=== PATIENT | female | born 1970 | race Caucasian/White ===

== ENCOUNTER 2020-02-04 10:47 | Emergency (ER) | payer SELFPAY ==
[2020-02-04 11:03] VITALS: BP 162/93; PULSE 103; RESP 14; TEMP 36.8; O2SAT 99; BMI 29.1
[2020-02-04 11:44] LABS: Glucose Urine UA >=1000 MG/DL (NEG); Leukocyte Esterase Urine NEG (NEG); Nitrite Urine NEG (NEG); PH 7.5 (5.0-8.0); Urine Blood 1+ (NEG); Urine Ketones NEG (NEG); Urine Protein TRACE MG/DL (NEG-TRACE)
[2020-02-04 11:45] LABS: Appearance Urine CLEAR; Color Urine YELLOW
[2020-02-04 12:02] LABS: WBC Urine 0-2 /HPF (0-4)
--- NOTE | 2020-02-04 12:47 | ED.FEMALEGU ---
HPI - Female Genitourinary General Chief complaint: Urogenital-Female Stated complaint: cath removal Time Seen by Provider: 02/04/20 11:59 Source: patient Mode of arrival: wheelchair Limitations: language barrier (family at the bedside to translate ) History of Present Illness HPI Narrative: 49 y/o female with history of DM, neuropathy, PVD s/p left BKA on 01/23 in [place] presents with vaginal pain due to persistent Metz being in place for the last 11 days. She reports she was supposed to get it out in [place] however she moved to [facility] to be with family. She states she has discomfort externally but denies bladder pain, hematuria, fever, chills. Urine has been clear and light yellow. She is also asking for basic wound care recommendations for her BKA. No pus or drainage from the site. No redness or warmth. MD elicited complaint: other (Metz catheter removal ) Pertinent past history: diabetes Onset (ago): day(s) (11) Location of symptoms: external genitalia Severity: mild Female Urogenital Radiation: Non-Radiating Severity scale (1-10): 1 Quality of pain: aching Consistency: constant Vaginal discharge: none Vaginal bleeding: none Relieving factors: none Associated symptoms: denies other symptoms Treatment prior to arrival: none Sexual activity: No Patient : No Related Data Previous Rx's Medication Instructions Recorded oxycodone 5 mg PO Q6H PRN #10 cap 02/04/20 walker #1 ea 02/04/20 Allergies Allergy/AdvReac Type Severity Reaction Status Date / Time Penicillins [PENICILLINS] Allergy Mild RASH Unverified 01/18/20 16:39 Review of Systems Review of Systems: Constitutional: No Fever, No Chills ENT/Mouth: No sore throat, No Rhinorrhea, No Swallowing Difficulty Eyes: No Eye Pain, No Swelling, No Redness Cardiovascular: No Chest Pain, No SOB, No Orthopnea, No Edema Respiratory: No Cough, No Sputum, No Wheezing, Gastrointestinal: No Nausea, No Vomiting, No Diarrhea, No abdominal Pain, No Hematochezia, No Melena Genitourinary: No Dysuria, No Urinary Frequency, No Hematuria, + Metz discomfort externally Musculoskeletal: positive joint pain at surgical site, No Myalgias Skin: No Skin Lesions, No rash, No cellulitis Neuro: No Weakness, No Numbness, No Dizziness, No Headache Psych: No Anxiety/Panic, No Depression Heme/Lymph: No Bruising, No Lymphadenopathy Endocrine: No Polyuria, No Polydipsia All other 10 point ROS are negative. [facility] Past Medical History Attestation statement: The following information was validated with the patient. Medical History Asthma Diabetes mellitus, type 2 Hypercholesteremia Surgical History History of amputation Social History Social History Smoked in Last 30 Days: No Use of substances other than those prescribed or required for medical reasons: No Advance Directives: No Advance Directives Information Provided: No Physical Exam Vital Signs and I&O and Narrative: Vital Signs and I&O: Vital Signs Temp 98.3 F 02/04/20 11:03 Pulse 103 H 02/04/20 11:03 Resp 14 02/04/20 11:03 BP 162/93 H 02/04/20 11:03 Pulse Ox 99 02/04/20 11:03 Intake & Output 02/03/20 02/04/20 02/04/20 18:59 06:59 18:59 Weight 76.921 kg Body Mass Index 29.1 Appearance: Alert. Oriented X3. No acute distress. Eyes: Pupils equal, round and reactive to light. ENT: Pharynx normal. Neck: Normal inspection. Neck supple. CVS: Normal heart rate and rhythm. Pulses normal. Respiratory: No respiratory distress. Breath sounds normal. Abdomen: Soft and nontender. +BS x4 : external genitalia normal, no vaginal discharge, urethral meatus normal in appearance Skin: Skin warm and dry. Normal skin color. Normal skin turgor. No rashes. Extremities: s/p left BKA, wound is clean and dry, no drainage, no erythema or warmth Neuro: Oriented X 3. No motor deficit. No sensory deficit. Course Course Hospital Course: POD # 11 - will removal Metz and see if she can void on her own. No signs of wound infection. Basic wound care discussed. Will refer to wound clinic and PCP. She will need sutures removed in 3 more days. It is healing well without signs of infeciton. Reevaluation(s) Reevaluation #1: Independently voided 200 cc clear urine. 0 PVR. Stable for d/c. MDM - Female Genitourinary Differential Diagnosis Differential diagnosis: Likely urinary tract infection and cystitis Medical Records Attestation: I reviewed the patient's medical records. Lab Data Attestation: I reviewed the patient's lab results. Labs: Lab Results 02/04/20 Range/Units 11:24 Urine Color YELLOW Urine Appearance CLEAR Urine pH 7.5 (5.0-8.0) Ur Specific [place] 1.010 (1.005-1.025) Urine Protein TRACE (NEG-TRACE) MG/DL Urine Glucose (UA) >=1000 H (NEG) MG/DL Urine Ketones NEG (NEG) MG/DL Urine Blood 1+ H (NEG) Urine Nitrite NEG (NEG) Ur Leukocyte Esterase NEG (NEG) Urine RBC 5-9 H (0) /HPF Urine WBC 0-2 (0-4) /HPF Ur Squamous Epith Cells NONE /LPF Urine Bacteria NONE /LPF Discharge Plan Discharge Clinical Impression: Encounter for Metz catheter removal S/P BKA (below knee amputation) Qualifiers: Laterality: left Qualified Code(s): Z89.512 - Acquired absence of left leg below knee Patient Disposition: Home, Self-Care Instructions: Care For Your Stitches (ED), Metz Catheter Removal (DC) Additional Instructions: Recommend sutures be removed on post-op day 14 - which is in 3 more days. Keep area clean and dry, wash daily with gentle soap and water and then apply bacitracin/triple antibiotic ointment. If you have difficulty urinating call your doctor or come back to the ER for further evaluation. Prescriptions: New oxycodone 5 mg capsule 5 mg PO Q6H PRN (Reason: pain) Qty: 10 RF: 0 (DME) walker Misc See Rx Instructions .ROUTE .MEDSUPPLY Qty: 1 RF: 0 Referrals: [facility] [Outside] - 2 days
--- NOTE | 2020-02-04 13:03 | PC.NURSE ---
Metz catheter removed as ordered by PA. Pt has since voided 200cc, with a remaining 9cc PVR. PA aware. Left BKA incision cleaned and re-dressed. Pt awaiting dc instructions.
[2020-02-04 13:28] VITALS: BP 174/96; PULSE 99; RESP 14; O2SAT 96
== END 2020-02-04 14:03 | disposition home or self-care (01) ==
PROVIDERS: Emergency Provider Emergency Medicine
DX: Z46.6 Encounter for fitting and adjustment of urinary device (principal); E11.9 Type 2 diabetes mellitus without complications; E78.00 Pure hypercholesterolemia, unspecified; Z89.512 Acquired absence of left leg below knee; Z79.4 Long term (current) use of insulin; Z79.899 Other long term (current) drug therapy
CPT/HCPCS: 81001; 99284

== ENCOUNTER 2020-02-07 08:00 | Emergency (ER) | payer SELFPAY ==
[2020-02-07 08:15] VITALS: BP 191/103; PULSE 88; RESP 16; TEMP 36.8; O2SAT 97; BMI 29.5
--- NOTE | 2020-02-07 08:20 | ED.NAVMDI ---
HPI - Nausea/Vomiting/Diarrhea General Chief complaint: Nausea/Vomiting/Diarrhea Stated complaint: vomiting Time Seen by Provider: 02/07/20 08:20 Source: patient Mode of arrival: ambulatory History of Present Illness HPI Narrative: 57-year-old female with a past medical history of asthma, DM, HLD, L BKA 2 weeks ago 2/2 gangrene c/o nausea and vomiting x4 days. Reports noncompliance with metformin and insulin and has not been checking glucose at home. Reports recent BKA in [place], then moved here, does not have doctors here yet due to insurance. Reports BKA has been improving since procedure on 01/23, denies drainage / fever. Denies chills, CP /SOB, abdominal pain, diarrhea, urine symptoms Associated nausea: Yes Related Data Previous Rx's Medication Instructions Recorded oxycodone 5 mg PO Q6H PRN #10 cap 02/04/20 walker #1 ea 02/04/20 insulin regular human [Humulin R 10 unit SUBCUT TID #10 ml 02/07/20 Regular U-100 Insuln] lisinopril 20 mg PO DAILY #30 tab 02/07/20 metformin 1,000 mg PO BID #60 tab 02/07/20 quetiapine [Seroquel] 200 mg PO BEDTIME #30 tab 02/07/20 tramadol 50 mg PO Q8H PRN 3 Days #10 tab 02/07/20 trazodone 150 mg PO BEDTIME PRN #30 tab 02/07/20 Allergies Allergy/AdvReac Type Severity Reaction Status Date / Time Penicillins [PENICILLINS] Allergy Mild RASH Unverified 01/18/20 16:39 Review of Systems Review of Systems: Yes all other systems are reviewed and are negative Constitutional: Constitutional: Reports as per HPI, Reports no additional constitutional complaints, Denies chills, Denies fever(s) and Denies headache(s) ENT: Reports system reviewed and no additional complaints, except as documented, Reports as per HPI, Denies headache(s) and Denies sore throat Cardiovascular: Cardiovascular: Reports as per HPI, Reports no additional cardiovascular complaints, Denies chest pain, Denies edema, Denies dyspnea and Denies dyspnea on exertion Respiratory: Respiratory: Reports as per HPI, Reports no additional respiratory complaints, Denies chest congestion, Denies cough, Denies dyspnea and Denies dyspnea on exertion Gastrointestinal: Gastrointestinal: Denies abdominal pain, Denies diarrhea, Reports nausea and Reports vomiting Genitourinary: Genitourinary: Denies hematuria and Denies flank pain Musculoskeletal: Musculoskeletal: Reports as per HPI, Denies numbness and Denies tingling Integumentary/Breasts: Skin/Breast: Denies rash Neurologic: Denies headache(s), Denies numbness, Denies Sensory deficit (Neuro) and Denies tingling Psychiatric: Psychiatric: Reports no additional psychiatric complaints Endocrine: Endocrine: Denies polydipsia and Reports polyuria [facility] Past Medical History Attestation statement: The following information was validated with the patient. Medical History (Updated 02/07/20 @ 16:33 by ROSALIO Gleason) Asthma Diabetes mellitus, type 2 Hypercholesteremia Surgical History (Updated 02/07/20 @ 08:51 by ROSALIO Gleason) History of amputation Social History Social History Alcohol intake: never Smoking Status: Never smoker Use of substances other than those prescribed or required for medical reasons: No Advance Directives: No Advance Directives Information Provided: Yes Physical Exam Vital Signs and I&O and Narrative: Vital Signs and I&O: Vital Signs Temp 98.3 F 02/07/20 08:28 Pulse 88 02/07/20 08:28 Resp 16 02/07/20 08:15 BP 191/103 H 02/07/20 08:28 Pulse Ox 97 02/07/20 08:28 Intake & Output 02/06/20 02/07/20 02/07/20 18:59 06:59 18:59 Intake Total 3000 / 3000 Balance 3000 / 3000 Weight 78.018 kg Intake: Intake, IV Amoun t 3000 / 3000 0.9 % Sodium C hloride 1,000 ml 3000 / 3000 @ 999 mls/hr I VCONT .Q1H1M [facility] Rx#:[id number] Body Mass Index 29.5 Const: General: cooperative and healthy appearing Orientation/consciousness: patient oriented x3 Limitations: no limitations HENMT: Head: Yes normal to inspection Ears: hearing grossly normal bilaterally General nose exam: Normal external nose present Face and sinus: Yes normal facial exam Eyes: General: appearance normal, both eyes and all related structures EOM: EOMs intact bilaterally Neck: Neck: Yes normal visual inspection Resp: Effort & Inspection: normal respiratory effort and no stridor Auscultation: clear to auscultation bilaterally, no crackles, no rales, no rhonchi and no wheezes Cardio: Rate: regular rate Heart sounds: S1 normal heart sound present and S2 normal heart sound present Peripheral pulses: Peripheral pulses 2+ throughout GI: Inspection: Yes normal to inspection Palpation (GI): Soft to palpation, nontender, no guarding and not rigid Skin: Wounds: no wounds Neuro: General: patient oriented x3 Gait exam (Neuro): Normal gait present Sensory Exam: No Sensory deficit (Neuro) Extrem: Other: left BKA with sutures intact. No surrounding erythema /cellulitis. No expressible drainage. No fluctuance or induration. Course Course Course Narrative: -1000-- H&H slightly lower than baseline ( likely postsurgical ) -1030-- GERRI with creatinine 1.7/BUN 28, glucose 523, no AG > likely from dehydration > will give IVF and re-evaluated difficulty getting IV access on patient. Was obtained using ultrasound, IVF now running -19 sutures removed -wound began to slightly dehiscence in ED. Surgery, Dr. Mata paged and re-wrapped wound/applied steri strips in the ED. Patient to follow-up with him in 1 week -1517-- repeat POC 294 -1628-- GERRI resolved with IVF lab results discussed with patient with diabetes specialist including worrisome signs and symptoms and strict return precautions. Will refill patient's home medications. She is to follow-up with surgery and establish care with a PCP. MDM - Nausea/Vomiting/Diarrhea MDM Narrative Medical decision making narrative: 57-year-old female with a past medical history of asthma, DM, HLD, L BKA 2 weeks ago 2/2 gangrene c/o nausea and vomiting x4 days. On exam hypertensive, NAD/ nontoxic appearing. Concern for DKA/hyperglycemia/ dehydration. BKA does not look actively infected. -Per patient sutures dissolvable, however do not appear to be and likely need to be removed today as is POD14 Plan: Labs, UA, IVF, Sx Tx, Reassess Differential Diagnosis Differential diagnosis: Likely food poisoning, gastroenteritis and dehydration Medical Records Attestation: I reviewed the patient's medical records. Lab Data Attestation: I reviewed the patient's lab results. Result diagrams: 10/07/20 14:47 02/07/20 15:45 Labs: Lab Results 02/07/20 02/07/20 02/07/20 Range/Units 08:17 09:20 09:39 WBC 6.6 (4.8-10.8) X10*3/uL RBC 4.00 L (4.20-5.50) X10*6/uL Hgb 11.4 L (12.0-16.0) g/dl Hct 34.8 L (37-47) % MCV 87.0 (80-98) fL MCH 28.5 (27.0-33.0) pg MCHC 32.8 (31.0-35.0) g/dl RDW 13.2 (11.0-16.0) % Plt Count 378 (160-400) X10*3/uL MPV 10.1 (9.4-12.3) fL Immature Gran % (Auto) 0.3 (0.0-0.4) % Neut % (Auto) 70.3 (45-73) % Lymph % (Auto) 17.6 L (20-40) % Parke % (Auto) 6.4 (2-11) % Eos % (Auto) 4.6 H (0-4) % Baso % (Auto) 0.8 (0-2) % Neut # (Auto) 4.6 (2.0-8.3) X10*3/uL Lymph # (Auto) 1.2 (1.2-4.9) X10*3/uL Parke # (Auto) 0.4 (0.1-1.2) X10*3/uL Eos # (Auto) 0.3 (0.0-0.4) X10*3/uL Baso # (Auto) 0.1 (0.0-0.2) X10*3/uL Abs Immat Gran (auto) 0.02 (0.00-0.03) X10*3/uL Absolute Nucleated RBC 0.000 (0.0-0.012) X10*3/uL Nucleated RBC % (auto) 0.0 (0.0-0.2) /100WBC VBG pH (7.32-7.43) VBG pCO2 mmhg VBG Oxygen Liters/Min VBG pO2 mmhg VBG HCO3 mmol/L VBG O2 Saturation % VBG Base Excess mmol/L Sodium (135-145) mmol/L Potassium (3.3-5.1) mmol/l Chloride (96-108) mmol/L Carbon Dioxide (22-29) mmol/L Anion Gap (12-20) BUN (9-16) mg/dL Creatinine (0.5-1.4) mg/dL Estim Creat Clear Calc Estimated GFR POC Glucose 446 H* 443 H* (60-115) mg/dL Random Glucose (60-115) mg/dL Calcium (8.4-10.2) mg/dL Magnesium (1.6-2.6) mg/dL Total Bilirubin (0.0-1.0) mg/dL Direct Bilirubin (0.0-0.5) mg/dL AST (5-31) U/L ALT (0-31) U/L Alkaline Phosphatase (39-117) U/L Total Protein (6.5-8.0) g/dL Albumin (3.5-5.0) g/dL Lipase (8-78) U/L Urine Color Urine Appearance Urine pH (5.0-8.0) Ur Specific Marshall (1.005-1.025) Urine Protein (NEG-TRACE) MG/DL Urine Glucose (UA) (NEG) MG/DL Urine Ketones (NEG) MG/DL Urine Blood (NEG) Urine Nitrite (NEG) Ur Leukocyte Esterase (NEG) Urine RBC (0) /HPF Urine WBC (0-4) /HPF Ur Squamous Epith Cells /LPF Urine Bacteria /LPF Urine Mucus /LPF Acetone, Qual (Negative) 02/07/20 02/07/20 02/07/20 Range/Units 09:39 09:39 10:48 WBC (4.8-10.8) X10*3/uL RBC (4.20-5.50) X10*6/uL Hgb (12.0-16.0) g/dl Hct (37-47) % MCV (80-98) fL MCH (27.0-33.0) pg MCHC (31.0-35.0) g/dl RDW (11.0-16.0) % Plt Count (160-400) X10*3/uL MPV (9.4-12.3) fL Immature Gran % (Auto) (0.0-0.4) % Neut % (Auto) (45-73) % Lymph % (Auto) (20-40) % Parke % (Auto) (2-11) % Eos % (Auto) (0-4) % Baso % (Auto) (0-2) % Neut # (Auto) (2.0-8.3) X10*3/uL Lymph # (Auto) (1.2-4.9) X10*3/uL Parke # (Auto) (0.1-1.2) X10*3/uL Eos # (Auto) (0.0-0.4) X10*3/uL Baso # (Auto) (0.0-0.2) X10*3/uL Abs Immat Gran (auto) (0.00-0.03) X10*3/uL Absolute Nucleated RBC (0.0-0.012) X10*3/uL Nucleated RBC % (auto) (0.0-0.2) /100WBC VBG pH 7.40 (7.32-7.43) VBG pCO2 58 mmhg VBG Oxygen Liters/Min TNP VBG pO2 47 mmhg VBG HCO3 34 mmol/L VBG O2 Saturation 82.4 % VBG Base Excess 7.8 mmol/L Sodium 139 (135-145) mmol/L Potassium 3.7 (3.3-5.1) mmol/l Chloride 95 L (96-108) mmol/L Carbon Dioxide 32 H (22-29) mmol/L Anion Gap 16 (12-20) BUN 28 H (9-16) mg/dL Creatinine 1.70 H (0.5-1.4) mg/dL Estim Creat Clear Calc 40.0 Estimated GFR 32 POC Glucose (60-115) mg/dL Random Glucose 523 H* (60-115) mg/dL Calcium 9.5 (8.4-10.2) mg/dL Magnesium 1.6 (1.6-2.6) mg/dL Total Bilirubin 0.5 (0.0-1.0) mg/dL Direct Bilirubin 0.2 (0.0-0.5) mg/dL AST 15 (5-31) U/L ALT 18 (0-31) U/L Alkaline Phosphatase 118 H (39-117) U/L Total Protein 8.6 H (6.5-8.0) g/dL Albumin 3.9 (3.5-5.0) g/dL Lipase 24 (8-78) U/L Urine Color YELLOW Urine Appearance CLEAR Urine pH 7.0 (5.0-8.0) Ur Specific Marshall 1.015 (1.005-1.025) Urine Protein 2+ H (NEG-TRACE) MG/DL Urine Glucose (UA) >=1000 H (NEG) MG/DL Urine Ketones NEG (NEG) MG/DL Urine Blood TRACE (NEG) Urine Nitrite NEG (NEG) Ur Leukocyte Esterase NEG (NEG) Urine RBC 5-9 H (0) /HPF Urine WBC 5-9 H (0-4) /HPF Ur Squamous Epith Cells 1+ /LPF Urine Bacteria NONE /LPF Urine Mucus 1+ /LPF Acetone, Qual Negative (Negative) 02/07/20 02/07/20 02/07/20 Range/Units 14:45 14:47 15:45 WBC 6.4 (4.8-10.8) X10*3/uL RBC 3.39 L (4.20-5.50) X10*6/uL Hgb 9.8 L (12.0-16.0) g/dl Hct 29.7 L (37-47) % MCV 87.6 (80-98) fL MCH 28.9 (27.0-33.0) pg MCHC 33.0 (31.0-35.0) g/dl RDW 13.2 (11.0-16.0) % Plt Count 318 (160-400) X10*3/uL MPV 10.0 (9.4-12.3) fL Immature Gran % (Auto) 0.3 (0.0-0.4) % Neut % (Auto) 64.9 (45-73) % Lymph % (Auto) 21.6 (20-40) % Parke % (Auto) 8.5 (2-11) % Eos % (Auto) 3.8 (0-4) % Baso % (Auto) 0.9 (0-2) % Neut # (Auto) 4.2 (2.0-8.3) X10*3/uL Lymph # (Auto) 1.4 (1.2-4.9) X10*3/uL Parke # (Auto) 0.5 (0.1-1.2) X10*3/uL Eos # (Auto) 0.2 (0.0-0.4) X10*3/uL Baso # (Auto) 0.1 (0.0-0.2) X10*3/uL Abs Immat Gran (auto) 0.02 (0.00-0.03) X10*3/uL Absolute Nucleated RBC 0.000 (0.0-0.012) X10*3/uL Nucleated RBC % (auto) 0.0 (0.0-0.2) /100WBC VBG pH (7.32-7.43) VBG pCO2 mmhg VBG Oxygen Liters/Min VBG pO2 mmhg VBG HCO3 mmol/L VBG O2 Saturation % VBG Base Excess mmol/L Sodium 139 (135-145) mmol/L Potassium 3.3 (3.3-5.1) mmol/l Chloride 103 (96-108) mmol/L Carbon Dioxide 25 (22-29) mmol/L Anion Gap 14 (12-20) BUN 23 H (9-16) mg/dL Creatinine 1.28 (0.5-1.4) mg/dL Estim Creat Clear Calc 53.1 Estimated GFR 44 POC Glucose 294 H (60-115) mg/dL Random Glucose 331 H D (60-115) mg/dL Calcium 8.3 L (8.4-10.2) mg/dL Magnesium (1.6-2.6) mg/dL Total Bilirubin (0.0-1.0) mg/dL Direct Bilirubin (0.0-0.5) mg/dL AST (5-31) U/L ALT (0-31) U/L Alkaline Phosphatase (39-117) U/L Total Protein (6.5-8.0) g/dL Albumin (3.5-5.0) g/dL Lipase (8-78) U/L Urine Color Urine Appearance Urine pH (5.0-8.0) Ur Specific Marshall (1.005-1.025) Urine Protein (NEG-TRACE) MG/DL Urine Glucose (UA) (NEG) MG/DL Urine Ketones (NEG) MG/DL Urine Blood (NEG) Urine Nitrite (NEG) Ur Leukocyte Esterase (NEG) Urine RBC (0) /HPF Urine WBC (0-4) /HPF Ur Squamous Epith Cells /LPF Urine Bacteria /LPF Urine Mucus /LPF Acetone, Qual (Negative) Discharge Plan Discharge Clinical Impression: Dehydration, GERRI (acute kidney injury), Acute hyperglycemia Patient Disposition: Home, Self-Care Instructions: Acute Kidney Injury (DC), Below the Knee Amputation (DC), Diabetes and Exercise (ED) Additional Instructions: your blood work showed evidence of dehydration and elevated sugar you need to try your sugars at home in take home prescribed medications You need to follow-up with general surgeon for your amputation Keep area dry and clean. Keep wrapping tight Area begins look infected, is red, there is drainage, you fever, you are unable to eat or drink, have nausea/vomiting, or excessive thirst / peeing return to the ED Prescriptions: New Humulin R Regular U-100 Insuln 100 unit/mL solution 10 unit subcut TID Qty: 10 RF: 0 metformin 1,000 mg tablet 1,000 mg PO BID Qty: 60 RF: 0 lisinopril 20 mg tablet 20 mg PO DAILY Qty: 30 RF: 0 quetiapine [Seroquel] 200 mg tablet 200 mg PO BEDTIME Qty: 30 RF: 0 trazodone 150 mg tablet 150 mg PO BEDTIME PRN (Reason: insomnia) Qty: 30 RF: 0 tramadol 50 mg tablet 50 mg PO Q8H PRN (Reason: pain) 3 Days Qty: 10 RF: 0 No Action oxycodone 5 mg capsule 5 mg PO Q6H PRN (Reason: pain) Qty: 10 RF: 0 (DME) walker Misc See Rx Instructions .ROUTE .MEDSUPPLY Qty: 1 RF: 0 Referrals: Marcelo Cevallos MD [Physician] - 3 days Sergo Mata MD [Physician] - 1 week Print Language: Montenegrin
[2020-02-07 08:21] LABS: Glucose, Whole Blood 446 mg/dL (60-115)
[2020-02-07 08:27] VITALS: O2SAT 97
[2020-02-07 08:28] VITALS: BP 191/103; PULSE 88; TEMP 36.8; O2SAT 97
--- NOTE | 2020-02-07 08:29 | PC.NURSE ---
pt brought in for n/v x 5 days. recent history of l bka. sts abx use. sts not been checking sugars at home, hasnt had insulin since being hospitalized. poc 446 during triage. denies other s/s. pt l bka has marlena wrap around stump, no obvious pain on palpation and no vascular streaking, redness or swelling. pt sts 9/10 pain to stump. otherwise a&ox4, speaking in full clear sentences, rr even/unlabored. provider at bedside for per allen interpretter.
--- NOTE | 2020-02-07 09:08 | PC.NURSE ---
MULTIPLE IV ATTEMPTS UNSUCCESFUL. PT STS HX OF USING US GUIDE FOR IV ACCESS.
[2020-02-07 09:25] LABS: Glucose, Whole Blood 443 mg/dL (60-115)
[2020-02-07 09:45] LABS: MANUAL DIFF FLAG NO
[2020-02-07 09:50] LABS: Basophils Absolute Auto 0.1 X10*3/uL (0.0-0.2); Basophils Percent Auto 0.8 % (0-2); Eosinophils Absolute Auto 0.3 X10*3/uL (0.0-0.4); Eosinophils Percent Auto 4.6 % (0-4); Hematocrit 34.8 % (37-47); Hemoglobin 11.4 g/dl (12.0-16.0); Imm Gran Abs Auto 0.02 X10*3/uL (0.00-0.03); Imm Gran Pct Auto 0.3 % (0.0-0.4); Lymphocytes Absolute Auto 1.2 X10*3/uL (1.2-4.9); Lymphocytes Percent Auto 17.6 % (20-40); Mean Corpuscular HGB Conc 32.8 g/dl (31.0-35.0); Mean Corpuscular Hemoglobin 28.5 pg (27.0-33.0); Mean Platelet Volume 10.1 fL (9.4-12.3); Monocytes Absolute Auto 0.4 X10*3/uL (0.1-1.2); Monocytes Percent Auto 6.4 % (2-11); Neutrophils Absolute Auto 4.6 X10*3/uL (2.0-8.3); Neutrophils Percent Auto 70.3 % (45-73); Platelet Count 378 X10*3/uL (160-400); Red Cell Distribution Width 13.2 % (11.0-16.0); White Blood Count 6.6 X10*3/uL (4.8-10.8)
[2020-02-07 09:56] LABS: PCO2 VBG 58 mmhg; PO2 VBG 47 mmhg
[2020-02-07 09:57] LABS: Base Excess VBG 7.8 mmol/L; HCO3 VBG 34 mmol/L; Oxygen Saturation VBG 82.4 %
[2020-02-07 10:23] LABS: Alanine Aminotransferase 18 U/L (0-31); Albumin Level 3.9 g/dL (3.5-5.0); Alkaline Phosphatase 118 U/L (39-117); Anion Gap 16 (12-20); Aspartate Amino Transferase 15 U/L (5-31); Bilirubin Direct 0.2 mg/dL (0.0-0.5); Bilirubin Total 0.5 mg/dL (0.0-1.0); Blood Urea Nitrogen 28 mg/dL (9-16); Calcium 9.5 mg/dL (8.4-10.2); Carbon Dioxide 32 mmol/L (22-29); Chloride 95 mmol/L (96-108); Estimated Glomerular Filt Rate 32; Glucose Random 523 mg/dL (60-115); Lipase 24 U/L (8-78); Magnesium 1.6 mg/dL (1.6-2.6); Potassium 3.7 mmol/l (3.3-5.1); Sodium 139 mmol/L (135-145); Total Protein 8.6 g/dL (6.5-8.0)
[2020-02-07 11:05] LABS: Acetone, serum QL Negative (Negative)
--- NOTE | 2020-02-07 11:21 | PC.NURSE ---
PROVIDER AND ELISE RN AT BEDSIDE TO ATTEMPT IV PLACEMENT VIA US GUIDE SUCCESSFULL
[2020-02-07 11:26] LABS: Glucose Urine UA >=1000 MG/DL (NEG); Leukocyte Esterase Urine NEG (NEG); Nitrite Urine NEG (NEG); Specific Gravity - Urine 1.015 (1.005-1.025); Urine Blood TRACE (NEG); Urine Ketones NEG (NEG); Urine Protein 2+ MG/DL (NEG-TRACE)
[2020-02-07 11:31] LABS: Appearance Urine CLEAR; Color Urine YELLOW
[2020-02-07] MEDS: 0.9 % Sodium Chloride 1,000 ML 999 ML IVCONT ×3 (11:32)
[2020-02-07 11:42] LABS: Squamous Epithelial Cell Urine 1+ /LPF; UACC CULT YES
[2020-02-07 11:43] LABS: Mucus Urine 1+ /LPF
[2020-02-07] MEDS: Ketorolac Tromethamine 15 MG/ML VIAL IV (12:33)
--- NOTE | 2020-02-07 12:37 | PC.NURSE ---
SUTURES FROM L BKA REMOVED BY PROVIDER, WOUND BOUNDARIES APPEAR APPROXIMATE AND INTACT. MEDICATED FOR PAIN PER EMAR. WCTM,
--- NOTE | 2020-02-07 14:24 | PC.NURSE ---
PT WOUND SITE APPEARS TO HAVE DEHISCENCE, PROVIDER AWARE, BOUNDARIES APPEAR TO OPENED ROUGHLY 1/2 CM ON L SIDE. GENERAL SX CONSULTED, AT BEDSIDE. STERI STRIPS APPLIED TO WOUND SITE, DRESSING APPLIED. PER SX, PT MAY FOLLOW UP W DR RAYMUNDO OFFICE D/T NO SURGEON IN AREA PT FOLLOWING.
[2020-02-07 15:02] LABS: MANUAL DIFF FLAG NO
[2020-02-07 15:03] LABS: Glucose, Whole Blood 294 mg/dL (60-115)
[2020-02-07 15:04] LABS: Basophils Absolute Auto 0.1 X10*3/uL (0.0-0.2); Basophils Percent Auto 0.9 % (0-2); Eosinophils Absolute Auto 0.2 X10*3/uL (0.0-0.4); Eosinophils Percent Auto 3.8 % (0-4); Hematocrit 29.7 % (37-47); Hemoglobin 9.8 g/dl (12.0-16.0); Imm Gran Abs Auto 0.02 X10*3/uL (0.00-0.03); Imm Gran Pct Auto 0.3 % (0.0-0.4); Lymphocytes Absolute Auto 1.4 X10*3/uL (1.2-4.9); Lymphocytes Percent Auto 21.6 % (20-40); Mean Corpuscular Hemoglobin 28.9 pg (27.0-33.0); Mean Corpuscular Volume 87.6 fL (80-98); Monocytes Absolute Auto 0.5 X10*3/uL (0.1-1.2); Monocytes Percent Auto 8.5 % (2-11); Neutrophils Absolute Auto 4.2 X10*3/uL (2.0-8.3); Neutrophils Percent Auto 64.9 % (45-73); Platelet Count 318 X10*3/uL (160-400); Red Blood Count 3.39 X10*6/uL (4.20-5.50); Red Cell Distribution Width 13.2 % (11.0-16.0); White Blood Count 6.4 X10*3/uL (4.8-10.8)
[2020-02-07] MEDS: oxyCODONE HCl Immed Release 5 MG TABLET PO (15:21)
--- NOTE | 2020-02-07 15:36 | PM.EVENT ---
Event Note Event Note: Asked to examine patient for open wound of her left below-knee amputation. Patient is status post below-knee amputation performed approximately two weeks ago in [place], [place]. She presented to the emergency department for a apparent wound check at which time sutures removed by the ED staff. A wound separation was noted in the medial portion of the incision. No bleeding or purulence discharge was noted. Examination of the left BKA stump reveals a small area of separation in the medial incision. There is no erythema or edema. No evidence of underlying abscess or hematoma. The lateral portion of the wound was well-healed without wound separation. The incision was reapproximated using full size Steri-Strips with benzoin applied to the skin. This was followed by a non adherent dressing, fluff gauze, Kelvin bandage. I recommended daily dressing changes, applying the Kelvin bandage firmly to decrease the swelling of the stump. She should follow up in my office in approximately one week for wound check.
[2020-02-07 16:21] LABS: Anion Gap 14 (12-20); Blood Urea Nitrogen 23 mg/dL (9-16); Calcium 8.3 mg/dL (8.4-10.2); Carbon Dioxide 25 mmol/L (22-29); Chloride 103 mmol/L (96-108); Creatinine Clr Calc Pharmacy 53.1; Estimated Glomerular Filt Rate 44; Glucose Random 331 mg/dL (60-115); Potassium 3.3 mmol/l (3.3-5.1); Sodium 139 mmol/L (135-145)
--- NOTE | 2020-02-19 14:47 | CONS_ITS ---
DATE OF SERVICE: 02/07/2020 REASON FOR CONSULTATION: Status post below-knee amputation, open wound. HISTORY OF PRESENT ILLNESS: The patient is a 49-year-old female patient with a history of diabetes mellitus, who developed severe infection of the left leg and underwent a left below-knee amputation while in [place], [place]. She is originally from [place] however. She underwent the procedure approximately 2 weeks prior to examination. The patient subsequently traveled to [place] to be with family and to undergo further wound care. She tolerated the procedure well with no particular problems. She was seen in the emergency department on 02/07/2020 for wound examination. At this time, the lester were removed by the emergency room personnel. Upon removing the sutures, the patient was found to have a separation of the wound. Surgical consultation was requested regarding this open wound. PAST MEDICAL HISTORY: 1. Asthma. 2. Diabetes mellitus type 2. 3. Hypercholesterolemia. PAST SURGICAL HISTORY: Below-knee amputation. MEDICATIONS: Insulin, lisinopril 20 mg p.o. daily, metformin 1000 mg p.o. b.i.d., oxycodone 5 mg p.o. q.6 hours p.r.n. for pain, Seroquel p.o. q.h.s., tramadol 50 mg q.8 hours p.r.n. for pain, trazodone 150 mg p.o. q.h.s. p.r.n. SOCIAL HISTORY: The patient denies tobacco or alcohol use. REVIEW OF SYSTEMS: The patient denies fever, chills, nausea, vomiting, headache, dizziness, chest pain, shortness of breath, productive cough, palpitations, abdominal pain, abdominal distention, diarrhea, constipation, bloody stools, leg pain. She does report an open wound of the left leg. PHYSICAL EXAMINATION: GENERAL: She is a well-nourished, well-developed female, in no acute distress. HEENT: Normocephalic, atraumatic. Extraocular muscles intact. Sclerae nonicteric. Oral mucosa moist. LUNGS: Clear to auscultation bilaterally. HEART: Regular rate and rhythm. S1 and S2 within normal limits. ABDOMEN: Soft and nondistended. EXTREMITIES: Significant for a left below-knee amputation. Sutures have been recently removed. There is a slight separation in the medial portion of the incision, but the subcutaneous sutures are holding. The lateral incision is well healed. No erythema or discharge is noted. No bleeding is appreciated. Skin margins are healthy-appearing. NEUROLOGIC: The patient is alert and oriented x3. Moving all 4 extremities equally. IMPRESSION: Diabetic-associated osteomyelitis involving the left leg, status post left below-knee amputation performed at an outside institution in [place], [place]. Suture removal today resulted in a slight separation of the incision. The underlying sutures are intact however. I recommended applying Steri-Strips, which I performed at the bedside. After cleaning the overlying skin, I applied some Mastisol to the overlying skin. A series of Steri-Strips were then used to reapproximate the incision. This was then followed by a nonadherent dressing, fluffed gauze, Kerlix, and an Kelvin bandage. The patient tolerated this skin closure and denies any ongoing symptoms. She should follow up in my office in approximately 1 week for wound examination. MD MINO Dudley/HILARIO / [phone]
== END 2020-02-07 17:04 | disposition home or self-care (01) ==
PROVIDERS: Physician Assistant; Emergency Provider Emergency Medicine
DX: N17.9 Acute kidney failure, unspecified (principal); E11.65 Type 2 diabetes mellitus with hyperglycemia; Z91.14 Patient's other noncompliance with medication regimen
CPT/HCPCS: 36415; 80048; 80076; 81001; 81003; 82009; 82803; 82947; 83690; 83735; 85025; 87086; 96361; 96374; 96375; 99284; 99285; J1885

== ENCOUNTER → 2020-02-14 14:23 | Outpatient (BNVA) | payer OTHER, SELFPAY | PROVIDERS: PCP Surgery; Visit Provider Surgery | DX: Z76.89 Persons encountering health services in other specified circumstances (principal) ==

== ENCOUNTER 2020-02-17 14:16 | Inpatient (IN) | payer OTHER, SELFPAY ==
[2020-02-17] VITALS (9 sets, daily range): BP systolic 133–188; BP diastolic 77–107; PULSE 85–95; RESP 12–18; TEMP 37.1; O2SAT 97–99; BMI 24.5
[2020-02-17 14:40] LABS: Glucose, Whole Blood 352 mg/dL (60-115)
--- NOTE | 2020-02-17 14:57 | US_ITS ---
EXAMINATION: US ABDOMEN COMPLETE CLINICAL INFORMATION: Epigastric pain for one month with nausea and vomiting.. COMPARISON: CT of the abdomen and pelvis done on 09/08/2018. TECHNIQUE: Real-time imaging of the abdominal viscera. FINDINGS: PANCREAS: The visualized part of the body and head of the pancreas appear unremarkable. The remainder of the pancreas is not visualized and accordingly not evaluated. ABDOMINAL AORTA: The proximal, mid, and distal segments are normal in caliber. Atherosclerotic plaques are noted throughout the entire visualized aorta. INFERIOR VENA CAVA: Visualized portions are normal. LIVER: Measures 18.5 cm at its maximum craniocaudal dimension. The liver contour is normal. Parenchymal echogenicity is normal. No focal hepatic lesion. There is no intrahepatic biliary duct dilatation seen. GALLBLADDER: Normal. The gallbladder is physiologically distended without evidence of stones, sludge, polyps, wall thickening or pericholecystic fluid. COMMON BILE DUCT: Normal in caliber measuring 0.6 cm in diameter. RIGHT KIDNEY: Normal. No hydronephrosis. No renal calculi or focal parenchymal lesions. The kidney measures 14.6 cm in maximum dimension. LEFT KIDNEY: Normal. No hydronephrosis. No renal calculi or focal parenchymal lesions. The kidney measures 14.0 cm in maximum dimension. SPLEEN: Mildly enlarged. The spleen measures 13.5 cm in maximum dimension. FREE FLUID: None. IMPRESSION: 1. No sonographic evidence of cholelithiasis or biliary obstruction or focal liver lesion is present. 2. Mild hepatosplenomegaly. 3. Atherosclerotic disease of the aorta.
--- NOTE | 2020-02-17 15:04 | PC.NURSE ---
pt is a very tough stick. this rn attempted iv access. unsuccessful. additional rn to attempt. warm blankets applied to bilateral arms.
--- NOTE | 2020-02-17 15:05 | ED_ITS ---
HPI - Nausea/Vomiting/Diarrhea General Chief complaint: Abdominal Pain Stated complaint: vomiting dm Time Seen by Provider: 02/17/20 14:43 Source: patient Mode of arrival: wheelchair Limitations: language barrier (Indian Speaking ) and physical limitation (left BKA ) History of Present Illness HPI Narrative: 49yoF c PMHx of recent BKA in [facility] on Jan 26 after visiting [place] and sustaining Gangrene presenting to the ED c c/o N.V and upper abd pain since then c elevated blood glucose levels despite taking her prescribed DM meds and Insulin. Was sent home on abx's after the left BKA although pt unsure of name but has been taking them since Jan 26 and has two days left of abx's. Reports she followed up c her PCP 3 days ago and had her dressing changed to the left BKA and told no signs of infection. Related Data Previous Rx's Medication Instructions Recorded oxycodone 5 mg PO Q6H PRN #10 cap 02/04/20 walker #1 ea 02/04/20 insulin regular human [Humulin R 10 unit SUBCUT TID #10 ml 02/07/20 Regular U-100 Insuln] lisinopril 20 mg PO DAILY #30 tab 02/07/20 metformin 1,000 mg PO BID #60 tab 02/07/20 quetiapine [Seroquel] 200 mg PO BEDTIME #30 tab 02/07/20 tramadol 50 mg PO Q8H PRN 3 Days #10 tab 02/07/20 trazodone 150 mg PO BEDTIME PRN #30 tab 02/07/20 Allergies Allergy/AdvReac Type Severity Reaction Status Date / Time Penicillins [PENICILLINS] Allergy Mild RASH Verified 02/17/20 14:33 Review of Systems Review of Systems: Constitutional : No Weight loss, No Fever, No Chills, No Night Sweats, No Fatigue, No Malaise ENT/Mouth : No Hearing loss, No Ear Pain, No Nasal Congestion, No Sinus Pain, No Hoarseness, No sore throat, No Rhinorrhea, No Swallowing Difficulty Eyes: No Eye Pain, No Swelling, No Redness, No Foreign Body, No Discharge, No Vision Changes Cardiovascular : No Chest Pain, No SOB, No Dyspnea on Exertion, No Orthopnea, No Edema, No Palpitations Respiratory : No Cough, No Sputum, No Wheezing, No Smoke Exposure, No Dyspnea Gastrointestinal : No Diarrhea, No Constipation, No Hematochezia, No Melena Genitourinary : no irregular bleeding, No Dysuria, No Urinary Frequency, No Hematuria, No Urinary Incontinence, No Urgency, No Flank Pain, No Urinary Flow Changes, No Hesitancy Musculoskeletal : No joint pain, No Myalgias, No Joint Swelling Skin : No Skin Lesions, No rash Neuro : No Weakness, No Numbness, No Paresthesias, No Loss of Consciousness, No Dizziness, No Headache Psych : No Anxiety/Panic, No Depression, No SI/HI/AH/VH, No Social Issues, Heme/Lymph: No Bruising, No Bleeding,No Lymphadenopathy Endocrine : No Polyuria, No Polydipsia, No Temperature Intolerance Yes all other systems are reviewed and are negative [facility] Past Medical History Attestation statement: The following information was validated with the patient. Medical History Asthma Diabetes mellitus, type 2 Hypercholesteremia Surgical History History of amputation Family History Family History Father History of prostate cancer History of kidney cancer Social History Social History Alcohol intake: never Smoking Status: Never smoker Smoked in Last 30 Days: No Use of substances other than those prescribed or required for medical reasons: No Advance Directives: No Advance Directives Information Provided: Yes Physical Exam Vital Signs: Vital Signs: Vital Signs Temp Pulse Resp BP Pulse Ox 02/17/20 20:04 90 13 159/81 H 98 02/17/20 18:06 12 02/17/20 18:00 85 12 164/107 H 98 02/17/20 15:00 92 145/81 H 02/17/20 14:45 90 133/77 02/17/20 14:34 99 02/17/20 14:30 98.7 F 95 18 156/84 H 99 Body Mass Index 24.5 Vital signs have been reviewed as normal and appeared to be correct. Blood pressure normal. Heart rate normal. Respiration rate normal. Temperature normal. Oxygen saturation normal. Appearance: Alert. Oriented X3. No acute distress. Head: Normal external exam. Normocephalic. Atraumatic. No Hart signs noted. No raccoon eyes noted Eyes: PERRLA. EOMI. Conjunctiva and sclera normal. Eyelids normal. ENT: EAC normal. TM's Normal. Pharynx normal. Uvula midline. Moist mucous membranes. No trismus noted. No drooling noted. No muffled voice noted. Neck: Normal inspection. Neck supple. FROM. No adenopathy. Thyroid Normal. No meningeal signs. No neck mass noted. CVS: Normal heart rate and rhythm. Heart sound normal. No murmurs noted. Pulses normal throughout. Respiratory: No respiratory distress. Painless inspiration. Breath sounds normal. No wheezes/rales/rhonchi noted. Chest nontender. No accessory muscle usage noted or decreased air movement noted. Abdomen: Soft. TTP of eipgastric/LUQ abd pain. Bowel sounds normal in all 4 quadrants. No distention noted. No organomegaly noted. No visible injury noted. No rashes/lesions noted. Back: No CVA tenderness. Full range of motion noted. Skin: Skin warm and dry. Normal skin color. Normal skin turgor. No rashes/lesions/lacerations noted. Extremities: Left BKA amputation noted with dressing in place. please refer to pictures of left below the knee amputation wound once dressing removed. Mild clear/yellow colored drainage noted. No surrounding erythema/streaking/indur ation. No lower extremity edema. Extremities exhibit normal range of motion. Extremities nontender. Neuro: Oriented X 3. No motor deficit. No sensory deficit. Reflexes normal. Course Course Course Narrative: 49yoF c PMHx of recent BKA in [facility] on Jan 26 after visiting [place] and sustaining Gangrene presenting to the ED c c/o N.V and upper abd pain since then c elevated blood glucose levels despite taking her prescribed DM meds and Insulin. Was sent home on abx's after the left BKA although pt unsure of name but has been taking them since Jan 26 and has two days left of abx's. Reports she followed up c her PCP 3 days ago and had her dressing changed to the left BKA and told no signs of infection. - Plan: Labs, acetone level, blood cultures, lactic acid, US of abd. Provide IVF and 4mg of zofran then Re-evaluate. Reevaluation(s) Reevaluation #1: - Pt noted to have a potassium of 3.2. Magnesium of 1.1. Random glucose 383 otherwise all other labs are within normal limits. Abdominal ultrasound revealed mild hepatosplenomegaly and arthrosclerotic disease of the aorta are otherwise no other acute processes noted. Therefore CT scan of abdomen and pelvis was obtained with IV contrast and revealed moderate wall thickening of urinary bladder therefore they recommended a UA waiting UA at this time. - Plan is to admit for intractable vomiting with upper abdominal pain with associated hypo magnesium and hypokalemia along with hyperglycemia. Patient understands and agrees with this plan. Reevaluation #2: - I attempted to admit the patient to the hospitalist service although he is requesting repeat chemistry and he wants to evaluate the patient after the repeat chemistry therefore plan is to order the repeat chemistry at this time and then re-evaluate. MDM - Nausea/Vomiting/Diarrhea MDM Narrative Medical decision making narrative: Electrolyte abnormality versus hyperglycemia versus DKA versus cholecystitis versus viral syndrome Medical Records Attestation: I reviewed the patient's medical records. Lab Data Attestation: I reviewed the patient's lab results. Result diagrams: 02/17/20 15:28 02/17/20 15:27 Labs: Lab Results 02/17/20 02/17/20 02/17/20 Range/Units 14:29 15:27 15:27 WBC (4.8-10.8) X10*3/uL RBC (4.20-5.50) X10*6/uL Hgb (12.0-16.0) g/dl Hct (37-47) % MCV (80-98) fL MCH (27.0-33.0) pg MCHC (31.0-35.0) g/dl RDW (11.0-16.0) % Plt Count (160-400) X10*3/uL MPV (9.4-12.3) fL Immature Gran % (Auto) (0.0-0.4) % Neut % (Auto) (45-73) % Lymph % (Auto) (20-40) % [place] % (Auto) (2-11) % Eos % (Auto) (0-4) % Baso % (Auto) (0-2) % Lymph # (Auto) (1.2-4.9) X10*3/uL [place] # (Auto) (0.1-1.2) X10*3/uL Eos # (Auto) (0.0-0.4) X10*3/uL Baso # (Auto) (0.0-0.2) X10*3/uL Abs Immat Gran (auto) (0.00-0.03) X10*3/uL Absolute Neuts (auto) (2.0-8.3) X10*3/uL Absolute Nucleated RBC (0.0-0.012) X10*3/uL Nucleated RBC % (auto) (0.0-0.2) /100WBC Hold Purple Top Hold Blue Top Sodium 138 (135-145) mmol/L Potassium 3.0 L (3.3-5.1) mmol/l Chloride 94 L (96-108) mmol/L Carbon Dioxide 35 H (22-29) mmol/L Anion Gap 12 (12-20) BUN 15 (9-16) mg/dL Creatinine 0.85 (0.5-1.4) mg/dL Estim Creat Clear Calc 68.3 Estimated GFR > 60 POC Glucose 352 H* (60-115) mg/dL Random Glucose 383 H* (60-115) mg/dL Lactic Acid 1.8 (0.5-2.0) mmol/L Calcium 9.2 (8.4-10.2) mg/dL Magnesium (1.6-2.6) mg/dL Total Bilirubin 0.6 (0.0-1.0) mg/dL Direct Bilirubin 0.2 (0.0-0.5) mg/dL AST 14 (5-31) U/L ALT 15 (0-31) U/L Alkaline Phosphatase 112 (39-117) U/L Total Protein 7.3 (6.5-8.0) g/dL Albumin 3.8 (3.5-5.0) g/dL Lipase (8-78) U/L Acetone, Qual (Negative) 02/17/20 02/17/20 02/17/20 Range/Units 15:28 15:28 15:28 WBC (4.8-10.8) X10*3/uL RBC (4.20-5.50) X10*6/uL Hgb (12.0-16.0) g/dl Hct (37-47) % MCV (80-98) fL MCH (27.0-33.0) pg MCHC (31.0-35.0) g/dl RDW (11.0-16.0) % Plt Count (160-400) X10*3/uL MPV (9.4-12.3) fL Immature Gran % (Auto) (0.0-0.4) % Neut % (Auto) (45-73) % Lymph % (Auto) (20-40) % [place] % (Auto) (2-11) % Eos % (Auto) (0-4) % Baso % (Auto) (0-2) % Lymph # (Auto) (1.2-4.9) X10*3/uL [place] # (Auto) (0.1-1.2) X10*3/uL Eos # (Auto) (0.0-0.4) X10*3/uL Baso # (Auto) (0.0-0.2) X10*3/uL Abs Immat Gran (auto) (0.00-0.03) X10*3/uL Absolute Neuts (auto) (2.0-8.3) X10*3/uL Absolute Nucleated RBC (0.0-0.012) X10*3/uL Nucleated RBC % (auto) (0.0-0.2) /100WBC Hold Purple Top Hold Blue Top SEE NOTE Sodium (135-145) mmol/L Potassium (3.3-5.1) mmol/l Chloride (96-108) mmol/L Carbon Dioxide (22-29) mmol/L Anion Gap (12-20) BUN (9-16) mg/dL Creatinine (0.5-1.4) mg/dL Estim Creat Clear Calc Estimated GFR POC Glucose (60-115) mg/dL Random Glucose (60-115) mg/dL Lactic Acid (0.5-2.0) mmol/L Calcium (8.4-10.2) mg/dL Magnesium 1.1 L* (1.6-2.6) mg/dL Total Bilirubin (0.0-1.0) mg/dL Direct Bilirubin (0.0-0.5) mg/dL AST (5-31) U/L ALT (0-31) U/L Alkaline Phosphatase (39-117) U/L Total Protein (6.5-8.0) g/dL Albumin (3.5-5.0) g/dL Lipase 21 (8-78) U/L Acetone, Qual Negative (Negative) 02/17/20 02/17/20 02/17/20 Range/Units 15:28 15:28 16:28 WBC 8.0 (4.8-10.8) X10*3/uL RBC 3.67 L (4.20-5.50) X10*6/uL Hgb 10.5 L (12.0-16.0) g/dl Hct 30.8 L (37-47) % MCV 83.9 (80-98) fL MCH 28.6 (27.0-33.0) pg MCHC 34.1 (31.0-35.0) g/dl RDW 13.1 (11.0-16.0) % Plt Count 297 (160-400) X10*3/uL MPV 11.2 (9.4-12.3) fL Immature Gran % (Auto) 0.1 (0.0-0.4) % Neut % (Auto) 69.1 (45-73) % Lymph % (Auto) 23.7 (20-40) % [place] % (Auto) 5.2 (2-11) % Eos % (Auto) 1.0 (0-4) % Baso % (Auto) 0.9 (0-2) % Lymph # (Auto) 1.9 (1.2-4.9) X10*3/uL [place] # (Auto) 0.4 (0.1-1.2) X10*3/uL Eos # (Auto) 0.1 (0.0-0.4) X10*3/uL Baso # (Auto) 0.1 (0.0-0.2) X10*3/uL Abs Immat Gran (auto) 0.01 (0.00-0.03) X10*3/uL Absolute Neuts (auto) 5.5 (2.0-8.3) X10*3/uL Absolute Nucleated RBC 0.000 (0.0-0.012) X10*3/uL Nucleated RBC % (auto) 0.0 (0.0-0.2) /100WBC Hold Purple Top SEE NOTE Hold Blue Top Sodium (135-145) mmol/L Potassium (3.3-5.1) mmol/l Chloride (96-108) mmol/L Carbon Dioxide (22-29) mmol/L Anion Gap (12-20) BUN (9-16) mg/dL Creatinine (0.5-1.4) mg/dL Estim Creat Clear Calc Estimated GFR POC Glucose 262 H (60-115) mg/dL Random Glucose (60-115) mg/dL Lactic Acid (0.5-2.0) mmol/L Calcium (8.4-10.2) mg/dL Magnesium (1.6-2.6) mg/dL Total Bilirubin (0.0-1.0) mg/dL Direct Bilirubin (0.0-0.5) mg/dL AST (5-31) U/L ALT (0-31) U/L Alkaline Phosphatase (39-117) U/L Total Protein (6.5-8.0) g/dL Albumin (3.5-5.0) g/dL Lipase (8-78) U/L Acetone, Qual (Negative) Imaging Data abd us: Attestation: I personally reviewed and interpreted this imaging study as follows: Radiologist's impression: IMPRESSION: 1. No sonographic evidence of cholelithiasis or biliary obstruction or focal liver lesion is present. 2. Mild hepatosplenomegaly. 3. Atherosclerotic disease of the aorta. CT scan - abdomen: Attestation: I personally reviewed and interpreted this imaging study as follows: Radiologist's impression: IMPRESSION: 1. Nonspecific hepatosplenomegaly. 2. Moderate wall thickening of the urinary bladder. Recommend correlation with urinalysis. There is a small amount of gas within the urinary bladder that may be related to recent catheterization. 3. Bilateral duplicated collecting system. No demonstrated nephrolithiasis or hydronephrosis/hydroureter. Critical Care Time Critical Care Time Critical Care Time: Yes Total Critical Care Time: 60 Attestation: I personally attest to this time spent taking care of the patient Discharge Plan Discharge Clinical Impression: Acute hyperglycemia, Abdominal pain, Hypomagnesemia, Acute hyperkalemia, Intractable vomiting with nausea Patient Disposition: Admitted As Inpatient
[2020-02-17 15:37] LABS: MANUAL DIFF FLAG NO
[2020-02-17 15:38] LABS: Basophils Absolute Auto 0.1 X10*3/uL (0.0-0.2); Basophils Percent Auto 0.9 % (0-2); Eosinophils Absolute Auto 0.1 X10*3/uL (0.0-0.4); Hematocrit 30.8 % (37-47); Hemoglobin 10.5 g/dl (12.0-16.0); Imm Gran Abs Auto 0.01 X10*3/uL (0.00-0.03); Imm Gran Pct Auto 0.1 % (0.0-0.4); Lymphocytes Absolute Auto 1.9 X10*3/uL (1.2-4.9); Lymphocytes Percent Auto 23.7 % (20-40); Mean Corpuscular HGB Conc 34.1 g/dl (31.0-35.0); Mean Corpuscular Hemoglobin 28.6 pg (27.0-33.0); Mean Corpuscular Volume 83.9 fL (80-98); Mean Platelet Volume 11.2 fL (9.4-12.3); Monocytes Absolute Auto 0.4 X10*3/uL (0.1-1.2); Monocytes Percent Auto 5.2 % (2-11); Neutrophils Absolute Auto 5.5 X10*3/uL (2.0-8.3); Neutrophils Percent Auto 69.1 % (45-73); Platelet Count 297 X10*3/uL (160-400); Red Blood Count 3.67 X10*6/uL (4.20-5.50); Red Cell Distribution Width 13.1 % (11.0-16.0)
[2020-02-17] MEDS: 0.9 % Sodium Chloride 1,000 ML 999 ML IVCONT (15:49)
--- NOTE | 2020-02-17 15:50 | PC.NURSE ---
ivf hung now, ultrasound finishing at bedside
--- NOTE | 2020-02-17 15:51 | PC.NURSE ---
iv access was obtained by mary calix
[2020-02-17 15:56] LABS: Lactic Acid 1.8 mmol/L (0.5-2.0)
[2020-02-17] MEDS: ondansetron HCL 4 MG/2 ML VIAL IVPUSH (15:56)
[2020-02-17 15:59] LABS: Acetone, serum QL Negative (Negative)
[2020-02-17 16:08] LABS: Lipase 21 U/L (8-78); Magnesium 1.1 mg/dL (1.6-2.6)
[2020-02-17 16:09] LABS: Alanine Aminotransferase 15 U/L (0-31); Albumin Level 3.8 g/dL (3.5-5.0); Alkaline Phosphatase 112 U/L (39-117); Anion Gap 12 (12-20); Aspartate Amino Transferase 14 U/L (5-31); Bilirubin Direct 0.2 mg/dL (0.0-0.5); Bilirubin Total 0.6 mg/dL (0.0-1.0); Blood Urea Nitrogen 15 mg/dL (9-16); Calcium 9.2 mg/dL (8.4-10.2); Carbon Dioxide 35 mmol/L (22-29); Chloride 94 mmol/L (96-108); Creatinine Clr Calc Pharmacy 68.3; Estimated Glomerular Filt Rate > 60; Glucose Random 383 mg/dL (60-115); Sodium 138 mmol/L (135-145); Total Protein 7.3 g/dL (6.5-8.0)
[2020-02-17] MEDS: Insulin Regular, Human 100 UNIT/ML 3 ML VIAL IVPUSH (16:10)
[2020-02-17] MEDS: Magnesium Sulfate/H2O 2 GM/50 ML PIGGYBACK IV (16:17)
[2020-02-17] MEDS: Morphine Sulfate 4 MG/ML CARTRIDGE IVPUSH (16:17)
[2020-02-17 16:32] LABS: Glucose, Whole Blood 262 mg/dL (60-115)
[2020-02-17] MEDS: Potassium Chloride ER 20 MEQ TAB.ER.PRT 60 MEQ PO (16:40)
--- NOTE | 2020-02-17 16:44 | PC.NURSE ---
pt vomited all the po pills of potassium. pa aware. plan for iv potassium s/p mg
--- NOTE | 2020-02-17 17:20 | CT_ITS ---
EXAMINATION: CT ABDOMEN AND PELVIS WITH CONTRAST CLINICAL INFORMATION: Upper abdominal pain. Nausea and vomiting. COMPARISON: CT abdomen and pelvis from 09/08/2018. TECHNIQUE: Multidetector volumetric imaging was performed through the abdomen and pelvis after the administration of 85 mL of Omnipaque 350 intravenous contrast. Sagittal and coronal reformatted images were obtained on the technologist's workstation. DLP: 588 mGy-cm. This CT examination was performed using dose optimization techniques as appropriate, variously including the following: *Automated exposure control. *Adjustment of mA and/or kV according to patient size (this includes techniques or standardized protocols for targeted exams where dose is matched to indication/reason for exam; i.e. extremities or head). *Use of iterative reconstruction technique. FINDINGS: Lower Chest: Moderate bilateral dependent atelectasis. Otherwise, no diffuse or focal parenchymal abnormalities in the visualized lung bases. No demonstrated abnormalities of the visualized cardiac structures. Liver, Biliary Ducts, and Gallbladder: The liver is enlarged (20 cm in sagittal dimension) and normal in attenuation. No focal hepatic lesions demonstrated. No biliary ductal dilatation. The gallbladder is physiologically distended without radiopaque gallstones, pericholecystic fluid, or significant gallbladder wall thickening. Pancreas: The pancreas is normal in appearance. Adrenal Glands: The adrenal glands are normal in appearance. Spleen: The spleen is enlarged, measuring 13.6 cm in long axis. No focal splenic lesions demonstrated.. Kidneys and Ureters: The kidneys demonstrate symmetric nephrograms without evidence of nephrolithiasis or hydronephrosis. There is at least partial duplication of the collecting systems bilaterally. No ureterolithiasis or hydroureter. Mild nonspecific perinephric fat stranding bilaterally. Urinary Bladder: The urinary bladder is moderately distended with circumferential wall thickening. Small volume gas within the urinary bladder. No bladder calculi are demonstrated. Gastrointestinal System: The stomach is decompressed and therefore not well evaluated on this exam. The small bowel is of normal caliber without regions of abnormal wall enhancement. The colon is normal in appearance without focal wall thickening or pericolonic inflammatory change. The appendix is not definitively visualized; however, there is no inflammatory changes in its expected distribution to suggest appendicitis. Genitourinary: No demonstrated adnexal soft tissue masses. Intra-abdominal and Retroperitoneal Spaces: No intra-abdominal free fluid collections or gas. No mesenteric, retroperitoneal, or inguinal lymphadenopathy. Vasculature: The abdominal aorta is of normal contour and caliber with mild calcific atherosclerotic disease. Musculoskeletal: Mild to moderate multilevel degenerative changes of the spine. Most notably, there is advanced degenerative disc disease at L5-S1. No lytic or sclerotic osseous lesions demonstrated. No soft tissue masses demonstrated. IMPRESSION: 1. Nonspecific hepatosplenomegaly. 2. Moderate wall thickening of the urinary bladder. Recommend correlation with urinalysis. There is a small amount of gas within the urinary bladder that may be related to recent catheterization. 3. Bilateral duplicated collecting system. No demonstrated nephrolithiasis or hydronephrosis/hydroureter.
[2020-02-17] MEDS: HYDROmorphone HCl 0.5 MG/0.5 ML SYRINGE IVPUSH (18:06)
[2020-02-17] MEDS: Metoclopramide HCl 10 MG/2 ML VIAL IVPUSH (18:19)
--- NOTE | 2020-02-17 18:21 | PC.NURSE ---
PT MEDICATED FOR NAUSEA. MG TAKEN DOWN/FINISHED. PLAN FOR CT NOW AND THEN TO HANG POTASSIUM. PT AWARE AND DENIED HAVING ANY QUESTIONS. NON CATEGORICAL PRESCHOOL TEACHER AT BEDSIDE
[2020-02-17] MEDS: iohexoL 350 MG/ML 100 ML INFUS..BTL IV (19:11)
[2020-02-17] MEDS: Potassium Chloride/H20 10 MEQ/100 ML PIGGYBACK 100 MEQ IV (20:01)
--- NOTE | 2020-02-17 20:44 | PC.NURSE ---
patient only got 15 minutes of medication when she complained of pain on upper portion of iv arm.
--- NOTE | 2020-02-17 21:52 | PM.IMHP ---
History of Present Illness Date of Service: 02/17/20 Chief Complaint: nausea/vomiting 49 y/o female with PMHx of HTN, DM, psychotic disorder, insomnia and gangrene of LLE s/p left BKA who presented from home due to nausea and vomiting. Per history provided by the patient, for the past 2 week has been having intermittent episodes of nausea and vomiting, patient has been unable to eat or drink anything. Reports that has not been compliant with Insulin treatment for DM givent economic status and is waiting for to provide with money in order to buy her medications. 1 month ago had a gangrene of the LLE which was complicated requiring left BKA amputation in [place]. On presentation patient is found to be hypertensive and tachycardic which improved after fluid resuscitation. Vitals now 156/81 and HR of 90. no evidence of leukocytosis on CBC. K of 3.1 and Mag of 1.1. Per ED patient was given IV mag 2 g but did not tolerate either Oral or IV KCL. No repeat labs done since then. CT abdomen was done given patient reports occasional abdominal pain with her symptoms which improves after vomiting, shows hepatosplenomegaly, no acute findings per radiology report. Decision for admission given for intractable vomiting/nausea and electrolyte imbalance. Review of Systems Gastrointestinal: Gastrointestinal: Reports abdominal pain, Reports nausea and Reports vomiting PMFSH Medical History Asthma Diabetes mellitus, type 2 Hypercholesteremia Functional capacity: independent ambulation Family History Father History of prostate cancer History of kidney cancer Family history: reviewed and not pertinent Surgical History History of amputation Social History Alcohol intake: never Smoking Status: Never smoker Smoked in Last 30 Days: No Use of substances other than those prescribed or required for medical reasons: No Advance Directives: No Advance Directives Information Provided: Yes Meds Allergies Allergy/AdvReac Type Severity Reaction Status Date / Time Penicillins [PENICILLINS] Allergy Mild RASH Verified 02/17/20 14:33 Physical Exam Vital Signs and Narrative: Vital Signs: Last Vital Signs Temp 98.7 F 02/17/20 14:30 Pulse 90 02/17/20 20:04 Resp 13 02/17/20 20:04 BP 159/81 H 02/17/20 20:04 Pulse Ox 98 02/17/20 20:04 Body Mass Index 24.5 Results Labs Labs: Laboratory Tests 02/17/20 02/17/20 02/17/20 14:29 15:27 15:27 WBC RBC Hgb Hct MCV MCH MCHC RDW Plt Count MPV Immature Gran % (Auto) Neut % (Auto) Lymph % (Auto) [place] % (Auto) Eos % (Auto) Baso % (Auto) Lymph # (Auto) [place] # (Auto) Eos # (Auto) Baso # (Auto) Abs Immat Gran (auto) Absolute Neuts (auto) Absolute Nucleated RBC Nucleated RBC % (auto) Hold Purple Top Hold Blue Top Sodium 138 Potassium 3.0 L Chloride 94 L Carbon Dioxide 35 H Anion Gap 12 BUN 15 Creatinine 0.85 Estim Creat Clear Calc 68.3 Estimated GFR > 60 POC Glucose 352 H* Random Glucose 383 H* Lactic Acid 1.8 Calcium 9.2 Magnesium Total Bilirubin 0.6 Direct Bilirubin 0.2 AST 14 ALT 15 Alkaline Phosphatase 112 Total Protein 7.3 Albumin 3.8 Lipase Acetone, Qual 02/17/20 02/17/20 02/17/20 15:28 15:28 15:28 WBC RBC Hgb Hct MCV MCH MCHC RDW Plt Count MPV Immature Gran % (Auto) Neut % (Auto) Lymph % (Auto) [place] % (Auto) Eos % (Auto) Baso % (Auto) Lymph # (Auto) [place] # (Auto) Eos # (Auto) Baso # (Auto) Abs Immat Gran (auto) Absolute Neuts (auto) Absolute Nucleated RBC Nucleated RBC % (auto) Hold Purple Top Hold Blue Top SEE NOTE Sodium Potassium Chloride Carbon Dioxide Anion Gap BUN Creatinine Estim Creat Clear Calc Estimated GFR POC Glucose Random Glucose Lactic Acid Calcium Magnesium 1.1 L* Total Bilirubin Direct Bilirubin AST ALT Alkaline Phosphatase Total Protein Albumin Lipase 21 Acetone, Qual Negative 02/17/20 02/17/20 02/17/20 15:28 15:28 16:28 WBC 8.0 RBC 3.67 L Hgb 10.5 L Hct 30.8 L MCV 83.9 MCH 28.6 MCHC 34.1 RDW 13.1 Plt Count 297 MPV 11.2 Immature Gran % (Auto) 0.1 Neut % (Auto) 69.1 Lymph % (Auto) 23.7 [place] % (Auto) 5.2 Eos % (Auto) 1.0 Baso % (Auto) 0.9 Lymph # (Auto) 1.9 [place] # (Auto) 0.4 Eos # (Auto) 0.1 Baso # (Auto) 0.1 Abs Immat Gran (auto) 0.01 Absolute Neuts (auto) 5.5 Absolute Nucleated RBC 0.000 Nucleated RBC % (auto) 0.0 Hold Purple Top SEE NOTE Hold Blue Top Sodium Potassium Chloride Carbon Dioxide Anion Gap BUN Creatinine Estim Creat Clear Calc Estimated GFR POC Glucose 262 H Random Glucose Lactic Acid Calcium Magnesium Total Bilirubin Direct Bilirubin AST ALT Alkaline Phosphatase Total Protein Albumin Lipase Acetone, Qual Assessment and Plan (1) Intractable vomiting with nausea: Status: Acute s/p multiple doses of antiemetics. Patient at present denies any nausea or vomiting and would like to try fluids PO NPO, advance diet as tolerated Observation If unable to tolerate PO diet then will need GI for evaluation and possible endoscopy (2) Hypomagnesemia: Status: Acute supplemented Follow up repeat levels (3) Hypokalemia: Status: Acute supplemented follow up repeat levels now (4) Diabetes mellitus, type 2: Status: Acute Hold PO meds Insulin regimen as ordered. Keep POCT glucose between 140-180 mg/dl (5) Psychotic disorder: Status: Acute continue with quetipine as ordered home dose (6) Hypertension: Status: Acute continue with lisinopril as ordered home dose
[2020-02-17 23:16] LABS: Glucose Urine UA 500 MG/DL (NEG); Leukocyte Esterase Urine NEG (NEG); Nitrite Urine NEG (NEG); PH 6.5 (5.0-8.0); Urine Blood TRACE (NEG); Urine Ketones NEG (NEG); Urine Protein 1+ MG/DL (NEG-TRACE)
[2020-02-17 23:18] LABS: Appearance Urine HAZY; Color Urine YELLOW
[2020-02-17 23:24] LABS: Anion Gap 16 (12-20); Blood Urea Nitrogen 12 mg/dL (9-16); Carbon Dioxide 25 mmol/L (22-29); Chloride 99 mmol/L (96-108); Creatinine Clr Calc Pharmacy 75.4; Estimated Glomerular Filt Rate > 60; Glucose Random 296 mg/dL (60-115); Potassium 3.7 mmol/l (3.3-5.1); Sodium 136 mmol/L (135-145)
[2020-02-17 23:53] LABS: Bacteria Urine 3+ /LPF; Squamous Epithelial Cell Urine 1+ /LPF; UACC CULT YES
[2020-02-18] VITALS (9 sets, daily range): BP systolic 126–181; BP diastolic 67–92; PULSE 88–96; RESP 18–19; TEMP 35.8–36.6; O2SAT 96–100; BMI 23.9
[2020-02-18 00:50] LABS: Calcium 8.6 mg/dL (8.4-10.2); Magnesium 1.9 mg/dL (1.6-2.6)
[2020-02-18] MEDS: Enoxaparin Sodium 40 MG/0.4 ML SYRINGE SUBCUT ×2 (00:59→23:14)
[2020-02-18] MEDS: traZODone HCL 50 MG TABLET 150 MG PO ×2 (00:59→20:16)
[2020-02-18] MEDS: QUEtiapine Fumarate 200 MG TABLET PO ×2 (01:00→20:14)
[2020-02-18] MEDS: 0.9 % Sodium Chloride Flush 3 ML SYRINGE IVFLUSH ×3 (02:21→23:14)
[2020-02-18] MEDS: Morphine Sulfate 2 MG/ML CARTRIDGE 1 MG IVPUSH (02:24)
--- NOTE | 2020-02-18 02:32 | PC.NURSE ---
Dr Dwayne Viveros notifed at 0225 of BP 134/75. 5mg IV lopressor held.
[2020-02-18 06:16] LABS: MANUAL DIFF FLAG NO
[2020-02-18 06:31] LABS: Basophils Absolute Auto 0.1 X10*3/uL (0.0-0.2); Basophils Percent Auto 0.9 % (0-2); Eosinophils Absolute Auto 0.1 X10*3/uL (0.0-0.4); Eosinophils Percent Auto 1.1 % (0-4); Imm Gran Abs Auto 0.02 X10*3/uL (0.00-0.03); Imm Gran Pct Auto 0.3 % (0.0-0.4); Lymphocytes Percent Auto 28.8 % (20-40); Mean Corpuscular HGB Conc 33.3 g/dl (31.0-35.0); Mean Corpuscular Hemoglobin 28.4 pg (27.0-33.0); Mean Corpuscular Volume 85.2 fL (80-98); Mean Platelet Volume 11.6 fL (9.4-12.3); Monocytes Absolute Auto 0.4 X10*3/uL (0.1-1.2); Neutrophils Absolute Auto 4.4 X10*3/uL (2.0-8.3); Neutrophils Percent Auto 62.9 % (45-73); Platelet Count 256 X10*3/uL (160-400); Red Blood Count 3.52 X10*6/uL (4.20-5.50); Red Cell Distribution Width 13.1 % (11.0-16.0)
[2020-02-18 06:48] LABS: Anion Gap 11 (12-20); Blood Urea Nitrogen 12 mg/dL (9-16); Calcium 8.7 mg/dL (8.4-10.2); Carbon Dioxide 35 mmol/L (22-29); Chloride 100 mmol/L (96-108); Creatinine Clr Calc Pharmacy 76.4; Estimated Glomerular Filt Rate > 60; Glucose Random 294 mg/dL (60-115); Magnesium 1.5 mg/dL (1.6-2.6); Potassium 3.7 mmol/l (3.3-5.1); Sodium 142 mmol/L (135-145)
[2020-02-18 07:56] LABS: Glucose, Whole Blood 246 mg/dL (60-115)
[2020-02-18] MEDS: Insulin Lispro 100 UNIT/ML 3 ML VIAL SUBCUT ×3 (09:03→20:11)
[2020-02-18] MEDS: Magnesium Sulfate/H2O 2 GM/50 ML PIGGYBACK IV (09:03)
[2020-02-18] MEDS: lisinopriL 20 MG TABLET PO (09:04)
[2020-02-18 09:12] LABS: Estimated Average Glucose 269 mg/dL
[2020-02-18] MEDS: 0.9 % Sodium Chloride 1,000 ML 100 ML IVCONT (11:02)
--- NOTE | 2020-02-18 11:22 | HO.PM.IMPN ---
Subjective Subjective Date of Service: 02/18/20 Interval History: C/o nausea/vomiting Minimal abd pain No dysuria or flank pain LLE stump without pain, healing well Constitutional Constitutional: Denies chills and Denies fever(s) Cardiovascular Cardiovascular: Denies chest pain Respiratory Respiratory: Denies no additional respiratory complaints and Denies cough Physical Exam Vital Signs: Vital Signs: Vital Signs Temp Pulse Resp BP Pulse Ox 02/18/20 10:07 96.4 F L 88 18 140/92 H 97 02/18/20 09:04 93 136/67 02/18/20 03:46 98 F 89 18 130/70 96 02/18/20 02:24 91 134/75 98 02/18/20 00:00 98 F 91 18 181/81 H 98 02/17/20 23:07 94 16 188/103 H 97 02/17/20 20:04 90 13 159/81 H 98 02/17/20 18:06 12 02/17/20 18:00 85 12 164/107 H 98 02/17/20 15:00 92 145/81 H 02/17/20 14:45 90 133/77 02/17/20 14:34 99 02/17/20 14:30 98.7 F 95 18 156/84 H 99 Body Mass Index 23.9 Gen: in no acute distress HEENT: sclera anicteric, moist mucus membranes Neck: supple Lungs: clear to auscultation bilaterally Heart: regular rate and rhythm, no murmurs Abd: soft, non-tender, non-distended Ext: s/p LLE extremity with stump with Steri-strips; no purulent drainage; no erythema; no tenderness Skin: warm/well-perfused Neuro: alert and oriented x3, no focal findings Psych: appropriate affect Objective Data Current Medications Generic Name Dose Route Start Last Admin Trade Name Freq PRN Reason Stop Dose Admin Enoxaparin Sodium 40 mg 02/18/20 00:00 02/18/20 00:59 Enoxaparin Sodium 40 Mg/0.4 Ml Syringe SUBCUT 40 mg Q24H SHY Administration Sodium Chloride 1,000 mls @ 100 mls/hr 02/18/20 09:45 02/18/20 11:02 Ns IVCONT 02/19/20 05:44 100 mls/hr .Q10H SHY Administration Insulin Human Lispro 4 unit 02/18/20 07:30 02/18/20 09:03 Insulin Lispro 100 Unit/Ml 3 Ml Vial SUBCUT 4 unit QIDACHS SHY Administration Lisinopril 20 mg 02/18/20 09:00 02/18/20 09:04 Lisinopril 20 Mg Tablet PO 20 mg DAILY SHY Administration Protocol Pharmacy Consult 1 each 02/17/20 20:17 Consult Rx Perform Med Rec MISCELLANE ONCE PRN Consult order Quetiapine Fumarate 200 mg 02/18/20 21:00 02/18/20 01:00 Quetiapine Fumarate 200 Mg Tablet PO 200 mg BEDTIME SHY Administration Sodium Chloride 3 ml 02/18/20 00:00 02/18/20 09:03 0.9 % Sodium Chloride Flush 3 Ml Syringe IVFLUSH 3 ml QSHIFT SHY Administration Trazodone HCl 150 mg 02/17/20 23:33 02/18/20 00:59 Trazodone Hcl 50 Mg Tablet PO 150 mg BEDTIME PRN Administration insomnia Labs CBC & Chem 7: 02/18/20 05:49 02/18/20 05:49 Assessment and Plan (1) Hypomagnesemia: Status: Acute (2) History of amputation: Status: Acute Assessment and Plan: Hospital day 2. 49-year-old woman with type 2 diabetes mellitus status post recent left BKA at an outside hospital presenting with intractable nausea and vomiting with electrolyte abnormalities # hypoMg - replete, recheck # hypoK - resolved # nausea/vomiting - ?due to hyperglycemia ?recent ABX. denies diarrhea. give IV fluids, antiemetics, advance diet as tolerated # s/p left BKA - was supposed to be on 2 more days of oral antibiotics, names unknown, but I do not see any signs of infection and will monitor clinically for now. change dressing every other day. Saw Dr. Mata in clinic 02/14/20 # DM2, A1c 11 - increase correction-scale Humalog - out of insulin and not insured but says she has a new PCP appointment at the [facility] on 03/03/2020 and her is picking up insulin at their pharmacy tomorrow- she is on regular insulin 10 units tid at home - CM consult re insurance # HTN - continue lisinopril # mood disorder - continue quetiapine
[2020-02-18 11:27] LABS: Glucose, Whole Blood 246 mg/dL (60-115)
--- NOTE | 2020-02-18 12:59 | MHC.CM.PN ---
met with pts niece with whom she lives prieto gross [phone] pt had no outside servceis prior to hospitalization family wqould accept vna if needed
--- NOTE | 2020-02-18 13:16 | MHC.CM.PN ---
face sheet faxed to [facility] on this date
[2020-02-18 16:37] LABS: Glucose, Whole Blood 323 mg/dL (60-115)
[2020-02-18 19:30] LABS: Amphetamine Screen Urine Not Detected (Not Detect); Barbiturates, Urine Not Detected (Not Detect); Benzodiazepines Screen Urine Not Detected (Not Detect); Cannabinoid Screen Urine Not Detected (Not Detect); Cocaine Screen Urine Not Detected (Not Detect); Opiate Screen Urine POSITIVE (Not Detect); Phencyclidine Screen Urine Not Detected (Not Detect)
[2020-02-18 20:08] LABS: Glucose, Whole Blood 221 mg/dL (60-115)
[2020-02-19 03:13] VITALS: BP 178/87; PULSE 80; RESP 19; TEMP 36.1; O2SAT 100
[2020-02-19 07:10] VITALS: BP 145/80; PULSE 98; RESP 18; TEMP 36.1; O2SAT 98
[2020-02-19 07:27] LABS: Glucose, Whole Blood 333 mg/dL (60-115)
[2020-02-19 07:45] VITALS: BP 145/80; PULSE 98
[2020-02-19] MEDS: 0.9 % Sodium Chloride Flush 3 ML SYRINGE IVFLUSH ×2 (07:45→16:30)
[2020-02-19] MEDS: lisinopriL 20 MG TABLET PO (07:45)
[2020-02-19] MEDS: Insulin Lispro 100 UNIT/ML 3 ML VIAL SUBCUT ×3 (07:45→16:30)
[2020-02-19 08:47] LABS: Magnesium 1.6 mg/dL (1.6-2.6)
[2020-02-19 08:48] LABS: Anion Gap 14 (12-20); Blood Urea Nitrogen 19 mg/dL (9-16); Calcium 8.5 mg/dL (8.4-10.2); Carbon Dioxide 30 mmol/L (22-29); Chloride 98 mmol/L (96-108); Estimated Glomerular Filt Rate > 60; Glucose Random 349 mg/dL (60-115); Potassium 3.8 mmol/l (3.3-5.1); Sodium 138 mmol/L (135-145)
[2020-02-19 09:10] VITALS: BP 145/80; PULSE 98
[2020-02-19 11:03] VITALS: BP 148/75; PULSE 94; RESP 18; TEMP 35.6; O2SAT 97
[2020-02-19 11:28] LABS: Glucose, Whole Blood 222 mg/dL (60-115)
[2020-02-19] MEDS: Nitrofurantoin Monohyd/M-Cryst 100 MG CAPSULE PO (12:38)
[2020-02-19 15:21] VITALS: BP 166/78; PULSE 97; RESP 18; TEMP 37.3; O2SAT 96
--- NOTE | 2020-02-19 15:48 | MHC.CM.PN ---
DC planning in progress. PCP and insurance are the barriers to dc today. unable to schedule PCP appointment @ [facility]. multiple attempts, vms left, by cm office and this casualty underwriter. notified by ABHIJIT HICKS on hold.
[2020-02-19 16:03] LABS: Glucose, Whole Blood 284 mg/dL (60-115)
--- NOTE | 2020-02-19 16:17 | PM.DS ---
DS: Providers Provider Date of admission: 02/17/20 21:51 Primary care physician: Crystal Physician. To be assigned at [facility]. DS: Diagnosis Discharge Diagnosis (1) Hypomagnesemia: Status: Acute (2) History of amputation: Status: Acute (3) Abdominal pain: Status: Acute (4) Hypokalemia: Status: Acute (5) UTI (urinary tract infection): Status: Acute (6) Uncontrolled type 2 diabetes mellitus: Status: Acute DS: Summary Hospital Course Hospital Course: From history and physical by admitting hospitalist Samantha Steinberg MD, 02/17/20: Chief Complaint: nausea/vomiting 49 y/o female with PMHx of HTN, DM, psychotic disorder, insomnia and gangrene of LLE s/p left BKA who presented from home due to nausea and vomiting. Per history provided by the patient, for the past 2 week has been having intermittent episodes of nausea and vomiting, patient has been unable to eat or drink anything. Reports that has not been compliant with Insulin treatment for DM givent economic status and is waiting for to provide with money in order to buy her medications. 1 month ago had a gangrene of the LLE which was complicated requiring left BKA amputation in [place]. On presentation patient is found to be hypertensive and tachycardic which improved after fluid resuscitation. Vitals now 156/81 and HR of 90. no evidence of leukocytosis on CBC. K of 3.1 and Mag of 1.1. Per ED patient was given IV mag 2 g but did not tolerate either Oral or IV KCL. No repeat labs done since then. CT abdomen was done given patient reports occasional abdominal pain with her symptoms which improves after vomiting, shows hepatosplenomegaly, no acute findings per radiology report. Decision for admission given for intractable vomiting/nausea and electrolyte imbalance. The patient was [place] [facility] Hypokalemia and hypomagnesemia resolved with repletion, and her nausea, vomiting, and abdominal pain resolved completely. She was started on nitrofurantoin for uncomplicated UTI. She was hyperglycemic but not in DKA. A1c was found to be 11. She was started on basal/bolus insulin. She is awaiting an new primary care appointment at [facility] and will also be referred to [facility]. She is having Basaglar 70 units daily plus regular insulin 10 units tidac mailed to her tomorrow from her prior pharmacy in [place]. She has glucometer, test strips, and lancets at home and the importance of good glycemic control was counseled. As for her left leg, she was examined by Dr Sergo Mata from general surgery, who had seen her in clinic on 02/14/20. The incision looks good, with only slight separation but intact underlying sutures. Steristrips were applied. There was no sign of infection. She will follow up with Dr Mata in 1 week for wound check. Time Spent with Patient Time attestation: Total time spent providing and/or coordinating discharge services: Physical Exam Vital Signs: Vital Signs: Vital Signs Temp Pulse Resp BP Pulse Ox 02/19/20 15:21 99.1 F 97 18 166/78 H 96 02/19/20 11:03 96.1 F L 94 18 148/75 H 97 02/19/20 09:10 98 145/80 H 02/19/20 07:45 98 145/80 H 02/19/20 07:10 97 F 98 18 145/80 H 98 02/19/20 03:13 97.0 F 80 19 178/87 H 100 02/18/20 23:13 96.6 F L 94 19 126/70 98 02/18/20 20:22 97.6 F 96 18 149/79 H 100 02/18/20 16:27 97.5 F 96 18 180/87 H 100 Body Mass Index 23.9 Gen: in no acute distress HEENT: sclera anicteric, moist mucus membranes Neck: supple Lungs: clear to auscultation bilaterally Heart: regular rate and rhythm, no murmurs Abd: soft, non-tender, non-distended Ext: s/p LLE extremity with stump with Steri-strips; no purulent drainage; no erythema; no tenderness Skin: warm/well-perfused Neuro: alert and oriented x3, no focal findings Psych: appropriate affect DS: Data Data Completed and Pending Labs on day of discharge: Laboratory Results - last 72 hr 02/17/20 02/17/20 02/17/20 14:29 15:27 15:27 WBC RBC Hgb Hct MCV MCH MCHC RDW Plt Count MPV Immature Gran % (Auto) Neut % (Auto) Lymph % (Auto) Williamson % (Auto) Eos % (Auto) Baso % (Auto) Lymph # (Auto) Williamson # (Auto) Eos # (Auto) Baso # (Auto) Abs Immat Gran (auto) Absolute Neuts (auto) Absolute Nucleated RBC Nucleated RBC % (auto) Hold Purple Top Hold Blue Top Sodium 138 Potassium 3.0 L Chloride 94 L Carbon Dioxide 35 H Anion Gap 12 BUN 15 Creatinine 0.85 Estim Creat Clear Calc 68.3 Estimated GFR > 60 POC Glucose 352 H* Random Glucose 383 H* Estimat Average Glucose Hemoglobin A1c % Lactic Acid 1.8 Calcium 9.2 Magnesium Total Bilirubin 0.6 Direct Bilirubin 0.2 AST 14 ALT 15 Alkaline Phosphatase 112 Total Protein 7.3 Albumin 3.8 Lipase Urine Color Urine Appearance Urine pH Ur Specific [place] Urine Protein Urine Glucose (UA) Urine Ketones Urine Blood Urine Nitrite Ur Leukocyte Esterase Urine RBC Urine WBC Ur Squamous Epith Cells Urine Bacteria Urine Opiates Screen Ur Barbiturates Screen Ur Phencyclidine Scrn Ur Amphetamines Screen U Benzodiazepines Scrn Urine Cocaine Screen U Marijuana (THC) Screen Acetone, Qual 02/17/20 02/17/20 02/17/20 15:28 15:28 15:28 WBC RBC Hgb Hct MCV MCH MCHC RDW Plt Count MPV Immature Gran % (Auto) Neut % (Auto) Lymph % (Auto) Williamson % (Auto) Eos % (Auto) Baso % (Auto) Lymph # (Auto) Williamson # (Auto) Eos # (Auto) Baso # (Auto) Abs Immat Gran (auto) Absolute Neuts (auto) Absolute Nucleated RBC Nucleated RBC % (auto) Hold Purple Top Hold Blue Top SEE NOTE Sodium Potassium Chloride Carbon Dioxide Anion Gap BUN Creatinine Estim Creat Clear Calc Estimated GFR POC Glucose Random Glucose Estimat Average Glucose Hemoglobin A1c % Lactic Acid Calcium Magnesium 1.1 L* Total Bilirubin Direct Bilirubin AST ALT Alkaline Phosphatase Total Protein Albumin Lipase 21 Urine Color Urine Appearance Urine pH Ur Specific [place] Urine Protein Urine Glucose (UA) Urine Ketones Urine Blood Urine Nitrite Ur Leukocyte Esterase Urine RBC Urine WBC Ur Squamous Epith Cells Urine Bacteria Urine Opiates Screen Ur Barbiturates Screen Ur Phencyclidine Scrn Ur Amphetamines Screen U Benzodiazepines Scrn Urine Cocaine Screen U Marijuana (THC) Screen Acetone, Qual Negative 02/17/20 02/17/20 02/17/20 15:28 15:28 16:28 WBC 8.0 RBC 3.67 L Hgb 10.5 L Hct 30.8 L MCV 83.9 MCH 28.6 MCHC 34.1 RDW 13.1 Plt Count 297 MPV 11.2 Immature Gran % (Auto) 0.1 Neut % (Auto) 69.1 Lymph % (Auto) 23.7 Williamson % (Auto) 5.2 Eos % (Auto) 1.0 Baso % (Auto) 0.9 Lymph # (Auto) 1.9 Williamson # (Auto) 0.4 Eos # (Auto) 0.1 Baso # (Auto) 0.1 Abs Immat Gran (auto) 0.01 Absolute Neuts (auto) 5.5 Absolute Nucleated RBC 0.000 Nucleated RBC % (auto) 0.0 Hold Purple Top SEE NOTE Hold Blue Top Sodium Potassium Chloride Carbon Dioxide Anion Gap BUN Creatinine Estim Creat Clear Calc Estimated GFR POC Glucose 262 H Random Glucose Estimat Average Glucose Hemoglobin A1c % Lactic Acid Calcium Magnesium Total Bilirubin Direct Bilirubin AST ALT Alkaline Phosphatase Total Protein Albumin Lipase Urine Color Urine Appearance Urine pH Ur Specific [place] Urine Protein Urine Glucose (UA) Urine Ketones Urine Blood Urine Nitrite Ur Leukocyte Esterase Urine RBC Urine WBC Ur Squamous Epith Cells Urine Bacteria Urine Opiates Screen Ur Barbiturates Screen Ur Phencyclidine Scrn Ur Amphetamines Screen U Benzodiazepines Scrn Urine Cocaine Screen U Marijuana (THC) Screen Acetone, Qual 02/17/20 02/17/20 02/18/20 22:48 23:09 05:49 WBC 7.0 RBC 3.52 L Hgb 10.0 L Hct 30.0 L MCV 85.2 MCH 28.4 MCHC 33.3 RDW 13.1 Plt Count 256 MPV 11.6 Immature Gran % (Auto) 0.3 Neut % (Auto) 62.9 Lymph % (Auto) 28.8 Williamson % (Auto) 6.0 Eos % (Auto) 1.1 Baso % (Auto) 0.9 Lymph # (Auto) 2.0 Williamson # (Auto) 0.4 Eos # (Auto) 0.1 Baso # (Auto) 0.1 Abs Immat Gran (auto) 0.02 Absolute Neuts (auto) 4.4 Absolute Nucleated RBC 0.000 Nucleated RBC % (auto) 0.0 Hold Purple Top Hold Blue Top Sodium 136 Potassium 3.7 D Chloride 99 Carbon Dioxide 25 Anion Gap 16 BUN 12 Creatinine 0.77 Estim Creat Clear Calc 75.4 Estimated GFR > 60 POC Glucose Random Glucose 296 H Estimat Average Glucose Hemoglobin A1c % Lactic Acid Calcium 8.6 Magnesium 1.9 Total Bilirubin Direct Bilirubin AST ALT Alkaline Phosphatase Total Protein Albumin Lipase Urine Color YELLOW Urine Appearance HAZY Urine pH 6.5 Ur Specific [place] 1.010 Urine Protein 1+ H Urine Glucose (UA) 500 H Urine Ketones NEG Urine Blood TRACE Urine Nitrite NEG Ur Leukocyte Esterase NEG Urine RBC 1-4 Urine WBC 15-29 H Ur Squamous Epith Cells 1+ Urine Bacteria 3+ Urine Opiates Screen Ur Barbiturates Screen Ur Phencyclidine Scrn Ur Amphetamines Screen U Benzodiazepines Scrn Urine Cocaine Screen U Marijuana (THC) Screen Acetone, Qual 02/18/20 02/18/20 02/18/20 05:49 05:49 07:53 WBC RBC Hgb Hct MCV MCH MCHC RDW Plt Count MPV Immature Gran % (Auto) Neut % (Auto) Lymph % (Auto) Williamson % (Auto) Eos % (Auto) Baso % (Auto) Lymph # (Auto) Williamson # (Auto) Eos # (Auto) Baso # (Auto) Abs Immat Gran (auto) Absolute Neuts (auto) Absolute Nucleated RBC Nucleated RBC % (auto) Hold Purple Top Hold Blue Top Sodium 142 Potassium 3.7 Chloride 100 Carbon Dioxide 35 H Anion Gap 11 L BUN 12 Creatinine 0.76 Estim Creat Clear Calc 76.4 Estimated GFR > 60 POC Glucose 246 H Random Glucose 294 H Estimat Average Glucose 269 Hemoglobin A1c % 11.0 Lactic Acid Calcium 8.7 Magnesium 1.5 L Total Bilirubin Direct Bilirubin AST ALT Alkaline Phosphatase Total Protein Albumin Lipase Urine Color Urine Appearance Urine pH Ur Specific [place] Urine Protein Urine Glucose (UA) Urine Ketones Urine Blood Urine Nitrite Ur Leukocyte Esterase Urine RBC Urine WBC Ur Squamous Epith Cells Urine Bacteria Urine Opiates Screen Ur Barbiturates Screen Ur Phencyclidine Scrn Ur Amphetamines Screen U Benzodiazepines Scrn Urine Cocaine Screen U Marijuana (THC) Screen Acetone, Qual 02/18/20 02/18/20 02/18/20 11:23 16:33 18:39 WBC RBC Hgb Hct MCV MCH MCHC RDW Plt Count MPV Immature Gran % (Auto) Neut % (Auto) Lymph % (Auto) Williamson % (Auto) Eos % (Auto) Baso % (Auto) Lymph # (Auto) Williamson # (Auto) Eos # (Auto) Baso # (Auto) Abs Immat Gran (auto) Absolute Neuts (auto) Absolute Nucleated RBC Nucleated RBC % (auto) Hold Purple Top Hold Blue Top Sodium Potassium Chloride Carbon Dioxide Anion Gap BUN Creatinine Estim Creat Clear Calc Estimated GFR POC Glucose 246 H 323 H Random Glucose Estimat Average Glucose Hemoglobin A1c % Lactic Acid Calcium Magnesium Total Bilirubin Direct Bilirubin AST ALT Alkaline Phosphatase Total Protein Albumin Lipase Urine Color Urine Appearance Urine pH Ur Specific [place] Urine Protein Urine Glucose (UA) Urine Ketones Urine Blood Urine Nitrite Ur Leukocyte Esterase Urine RBC Urine WBC Ur Squamous Epith Cells Urine Bacteria Urine Opiates Screen POSITIVE H Ur Barbiturates Screen Not Detected Ur Phencyclidine Scrn Not Detected Ur Amphetamines Screen Not Detected U Benzodiazepines Scrn Not Detected Urine Cocaine Screen Not Detected U Marijuana (THC) Screen Not Detected Acetone, Qual 02/18/20 02/19/20 02/19/20 20:04 07:24 07:50 WBC RBC Hgb Hct MCV MCH MCHC RDW Plt Count MPV Immature Gran % (Auto) Neut % (Auto) Lymph % (Auto) Williamson % (Auto) Eos % (Auto) Baso % (Auto) Lymph # (Auto) Williamson # (Auto) Eos # (Auto) Baso # (Auto) Abs Immat Gran (auto) Absolute Neuts (auto) Absolute Nucleated RBC Nucleated RBC % (auto) Hold Purple Top Hold Blue Top Sodium 138 Potassium 3.8 Chloride 98 Carbon Dioxide 30 H Anion Gap 14 BUN 19 H D Creatinine 0.83 Estim Creat Clear Calc 70.0 Estimated GFR > 60 POC Glucose 221 H 333 H Random Glucose 349 H Estimat Average Glucose Hemoglobin A1c % Lactic Acid Calcium 8.5 Magnesium Total Bilirubin Direct Bilirubin AST ALT Alkaline Phosphatase Total Protein Albumin Lipase Urine Color Urine Appearance Urine pH Ur Specific [place] Urine Protein Urine Glucose (UA) Urine Ketones Urine Blood Urine Nitrite Ur Leukocyte Esterase Urine RBC Urine WBC Ur Squamous Epith Cells Urine Bacteria Urine Opiates Screen Ur Barbiturates Screen Ur Phencyclidine Scrn Ur Amphetamines Screen U Benzodiazepines Scrn Urine Cocaine Screen U Marijuana (THC) Screen Acetone, Qual 02/19/20 02/19/20 02/19/20 07:50 11:22 15:59 WBC RBC Hgb Hct MCV MCH MCHC RDW Plt Count MPV Immature Gran % (Auto) Neut % (Auto) Lymph % (Auto) Williamson % (Auto) Eos % (Auto) Baso % (Auto) Lymph # (Auto) Williamson # (Auto) Eos # (Auto) Baso # (Auto) Abs Immat Gran (auto) Absolute Neuts (auto) Absolute Nucleated RBC Nucleated RBC % (auto) Hold Purple Top Hold Blue Top Sodium Potassium Chloride Carbon Dioxide Anion Gap BUN Creatinine Estim Creat Clear Calc Estimated GFR POC Glucose 222 H 284 H Random Glucose Estimat Average Glucose Hemoglobin A1c % Lactic Acid Calcium Magnesium 1.6 Total Bilirubin Direct Bilirubin AST ALT Alkaline Phosphatase Total Protein Albumin Lipase Urine Color Urine Appearance Urine pH Ur Specific [place] Urine Protein Urine Glucose (UA) Urine Ketones Urine Blood Urine Nitrite Ur Leukocyte Esterase Urine RBC Urine WBC Ur Squamous Epith Cells Urine Bacteria Urine Opiates Screen Ur Barbiturates Screen Ur Phencyclidine Scrn Ur Amphetamines Screen U Benzodiazepines Scrn Urine Cocaine Screen U Marijuana (THC) Screen Acetone, Qual Discharge Plan Discharge Patient Disposition: Home, Self-Care Referrals: [facility] [Physician] - (Needs new PCP) Physician,None [Primary Care Provider] - Ludmila Almonte MD [Physician] - (uncontrolled DM2, A1c 11) Discharge Medications: New nitrofurantoin monohyd/m-cryst 100 mg Capsule 100 mg PO Q12H Qty: 9 RF: 0 Basaglar KwikPen U-100 Insulin 100 unit/mL (3 mL) insulin pen 70 unit subcut QAM Qty: 3 RF: 0 (DME) [facility] See Rx Instructions .ROUTE .MEDSUPPLY Qty: 1 RF: 0 Continued (DME) [facility] See Rx Instructions .ROUTE .MEDSUPPLY Qty: 1 RF: 0 Humulin R Regular U-100 Insuln 100 unit/mL solution 10 unit subcut TID Qty: 10 RF: 0 metformin 1,000 mg tablet 1,000 mg PO BID Qty: 60 RF: 0 lisinopril 20 mg tablet 20 mg PO DAILY Qty: 30 RF: 0 quetiapine [Seroquel] 200 mg tablet 200 mg PO BEDTIME Qty: 30 RF: 0 trazodone 150 mg tablet 150 mg PO BEDTIME PRN (Reason: insomnia) Qty: 30 RF: 0 tramadol 50 mg tablet 50 mg PO Q8H PRN (Reason: pain) 3 Days Qty: 10 RF: 0 Discontinued oxycodone 5 mg capsule 5 mg PO Q6H PRN (Reason: pain) Qty: 10 RF: 0 Discharge Orders: Discharge Order (Routine); Ordered 02/19/20 Ordered By: Shaun Leach Diet: diabetic diet and low salt diet Activity on Discharge: Use cane or walker Patient Instructions: Diabetes and Nutrition (DC) Discharge Date/Time: 02/19/20 17:20 Visit Report Forms: Patient Portal Discharge page Care Plan Goals: left BKA healing, restore balance/walking Health Concerns: nausea/vomiting resolved. diabetes needs better control. Plan of Treatment: nausea/vomiting: resolved diabetes mellitus type 2 with hyperglycemia: Mediterranean diet, exercise, resume metformin and insulin (Basaglar 70 units daily plus Humalog 10 units 3x a day), follow up with your new primary care doctor at [facility], [address] [place], [place] [id number], . You will receive a call with the appointment. left BKA: follow up with Dr Mata [general surgeon] as scheduled on 03/19/20 at 3:30pm urinary tract infection: take nitrofurantoin 100 mg twice daily for 5 days
--- NOTE | 2020-02-19 16:23 | PM.DS ---
DS: Providers Provider Date of admission: 02/17/20 21:51 Primary care physician: Crystal Physician- to be established at [facility] Admitting clinician: Samantha Viveros Attending physician on admission: Shaun Leach Attending physician on discharge: Shaun Leach Discharging clinician: Shaun Leach Anticipated date of discharge: 02/19/20 DS: Diagnosis Discharge Diagnosis (1) Hypomagnesemia: Status: Acute (2) History of amputation: Status: Acute (3) Abdominal pain: Status: Acute (4) Hypokalemia: Status: Acute (5) UTI (urinary tract infection): Status: Acute (6) Uncontrolled type 2 diabetes mellitus: Status: Acute DS: Summary Hospital Course Hospital Course: From history and physical by admitting hospitalist Samantha Steinberg MD, 02/17/20: Chief Complaint: nausea/vomiting 49 y/o female with PMHx of HTN, DM, psychotic disorder, insomnia and gangrene of LLE s/p left BKA who presented from home due to nausea and vomiting. Per history provided by the patient, for the past 2 week has been having intermittent episodes of nausea and vomiting, patient has been unable to eat or drink anything. Reports that has not been compliant with Insulin treatment for DM givent economic status and is waiting for to provide with money in order to buy her medications. 1 month ago had a gangrene of the LLE which was complicated requiring left BKA amputation in [place]. On presentation patient is found to be hypertensive and tachycardic which improved after fluid resuscitation. Vitals now 156/81 and HR of 90. no evidence of leukocytosis on CBC. K of 3.1 and Mag of 1.1. Per ED patient was given IV mag 2 g but did not tolerate either Oral or IV KCL. No repeat labs done since then. CT abdomen was done given patient reports occasional abdominal pain with her symptoms which improves after vomiting, shows hepatosplenomegaly, no acute findings per radiology report. Decision for admission given for intractable vomiting/nausea and electrolyte imbalance. [place] [facility] [place]okalemia and hypomagnesemia resolved with repletion, and her nausea, vomiting, and abdominal pain resolved completely. She was started on nitrofurantoin for uncomplicated UTI. She was hyperglycemic but not in DKA. A1c was found to be 11. She was started on basal/bolus insulin. She is awaiting an new primary care appointment at [facility] and will also be referred to [facility]. She is having Basaglar 70 units daily plus regular insulin 10 units tidac mailed to her tomorrow from her prior pharmacy in [place]. She has glucometer, test strips, and lancets at home and the importance of good glycemic control was counseled. As for her left leg, she was examined by Dr Sergo Mata from general surgery, who had seen her in clinic on 02/14/20. The incision looks good, with only slight separation but intact underlying sutures. Steristrips were applied. There was no sign of infection. She will follow up with Dr Mata in 1 week for wound check. Time Spent with Patient Time attestation: Total time spent providing and/or coordinating discharge services: 40 Time spent: Greater than 30 minutes Physical Exam Vital Signs: Vital Signs: Vital Signs Temp Pulse Resp BP Pulse Ox 02/19/20 15:21 99.1 F 97 18 166/78 H 96 02/19/20 11:03 96.1 F L 94 18 148/75 H 97 02/19/20 09:10 98 145/80 H 02/19/20 07:45 98 145/80 H 02/19/20 07:10 97 F 98 18 145/80 H 98 02/19/20 03:13 97.0 F 80 19 178/87 H 100 02/18/20 23:13 96.6 F L 94 19 126/70 98 02/18/20 20:22 97.6 F 96 18 149/79 H 100 02/18/20 16:27 97.5 F 96 18 180/87 H 100 Body Mass Index 23.9 Gen: in no acute distress HEENT: sclera anicteric, moist mucus membranes Neck: supple Lungs: clear to auscultation bilaterally Heart: regular rate and rhythm, no murmurs Abd: soft, non-tender, non-distended Ext: s/p LLE BKA with stump with Steri-strips; no purulent drainage; no erythema; no tenderness Skin: warm/well-perfused Neuro: alert and oriented x3, no focal findings Psych: appropriate affect DS: Data Data Completed and Pending Labs on day of discharge: Laboratory Results - last 72 hr 02/17/20 02/17/20 02/17/20 14:29 15:27 15:27 WBC RBC Hgb Hct MCV MCH MCHC RDW Plt Count MPV Immature Gran % (Auto) Neut % (Auto) Lymph % (Auto) [place] % (Auto) Eos % (Auto) Baso % (Auto) Lymph # (Auto) [place] # (Auto) Eos # (Auto) Baso # (Auto) Abs Immat Gran (auto) Absolute Neuts (auto) Absolute Nucleated RBC Nucleated RBC % (auto) Hold Purple Top Hold Blue Top Sodium 138 Potassium 3.0 L Chloride 94 L Carbon Dioxide 35 H Anion Gap 12 BUN 15 Creatinine 0.85 Estim Creat Clear Calc 68.3 Estimated GFR > 60 POC Glucose 352 H* Random Glucose 383 H* Estimat Average Glucose Hemoglobin A1c % Lactic Acid 1.8 Calcium 9.2 Magnesium Total Bilirubin 0.6 Direct Bilirubin 0.2 AST 14 ALT 15 Alkaline Phosphatase 112 Total Protein 7.3 Albumin 3.8 Lipase Urine Color Urine Appearance Urine pH Ur Specific [place] Urine Protein Urine Glucose (UA) Urine Ketones Urine Blood Urine Nitrite Ur Leukocyte Esterase Urine RBC Urine WBC Ur Squamous Epith Cells Urine Bacteria Urine Opiates Screen Ur Barbiturates Screen Ur Phencyclidine Scrn Ur Amphetamines Screen U Benzodiazepines Scrn Urine Cocaine Screen U Marijuana (THC) Screen Acetone, Qual 02/17/20 02/17/20 02/17/20 15:28 15:28 15:28 WBC RBC Hgb Hct MCV MCH MCHC RDW Plt Count MPV Immature Gran % (Auto) Neut % (Auto) Lymph % (Auto) [place] % (Auto) Eos % (Auto) Baso % (Auto) Lymph # (Auto) [place] # (Auto) Eos # (Auto) Baso # (Auto) Abs Immat Gran (auto) Absolute Neuts (auto) Absolute Nucleated RBC Nucleated RBC % (auto) Hold Purple Top Hold Blue Top SEE NOTE Sodium Potassium Chloride Carbon Dioxide Anion Gap BUN Creatinine Estim Creat Clear Calc Estimated GFR POC Glucose Random Glucose Estimat Average Glucose Hemoglobin A1c % Lactic Acid Calcium Magnesium 1.1 L* Total Bilirubin Direct Bilirubin AST ALT Alkaline Phosphatase Total Protein Albumin Lipase 21 Urine Color Urine Appearance Urine pH Ur Specific [place] Urine Protein Urine Glucose (UA) Urine Ketones Urine Blood Urine Nitrite Ur Leukocyte Esterase Urine RBC Urine WBC Ur Squamous Epith Cells Urine Bacteria Urine Opiates Screen Ur Barbiturates Screen Ur Phencyclidine Scrn Ur Amphetamines Screen U Benzodiazepines Scrn Urine Cocaine Screen U Marijuana (THC) Screen Acetone, Qual Negative 02/17/20 02/17/20 02/17/20 15:28 15:28 16:28 WBC 8.0 RBC 3.67 L Hgb 10.5 L Hct 30.8 L MCV 83.9 MCH 28.6 MCHC 34.1 RDW 13.1 Plt Count 297 MPV 11.2 Immature Gran % (Auto) 0.1 Neut % (Auto) 69.1 Lymph % (Auto) 23.7 [place] % (Auto) 5.2 Eos % (Auto) 1.0 Baso % (Auto) 0.9 Lymph # (Auto) 1.9 [place] # (Auto) 0.4 Eos # (Auto) 0.1 Baso # (Auto) 0.1 Abs Immat Gran (auto) 0.01 Absolute Neuts (auto) 5.5 Absolute Nucleated RBC 0.000 Nucleated RBC % (auto) 0.0 Hold Purple Top SEE NOTE Hold Blue Top Sodium Potassium Chloride Carbon Dioxide Anion Gap BUN Creatinine Estim Creat Clear Calc Estimated GFR POC Glucose 262 H Random Glucose Estimat Average Glucose Hemoglobin A1c % Lactic Acid Calcium Magnesium Total Bilirubin Direct Bilirubin AST ALT Alkaline Phosphatase Total Protein Albumin Lipase Urine Color Urine Appearance Urine pH Ur Specific [place] Urine Protein Urine Glucose (UA) Urine Ketones Urine Blood Urine Nitrite Ur Leukocyte Esterase Urine RBC Urine WBC Ur Squamous Epith Cells Urine Bacteria Urine Opiates Screen Ur Barbiturates Screen Ur Phencyclidine Scrn Ur Amphetamines Screen U Benzodiazepines Scrn Urine Cocaine Screen U Marijuana (THC) Screen Acetone, Qual 02/17/20 02/17/20 02/18/20 22:48 23:09 05:49 WBC 7.0 RBC 3.52 L Hgb 10.0 L Hct 30.0 L MCV 85.2 MCH 28.4 MCHC 33.3 RDW 13.1 Plt Count 256 MPV 11.6 Immature Gran % (Auto) 0.3 Neut % (Auto) 62.9 Lymph % (Auto) 28.8 [place] % (Auto) 6.0 Eos % (Auto) 1.1 Baso % (Auto) 0.9 Lymph # (Auto) 2.0 [place] # (Auto) 0.4 Eos # (Auto) 0.1 Baso # (Auto) 0.1 Abs Immat Gran (auto) 0.02 Absolute Neuts (auto) 4.4 Absolute Nucleated RBC 0.000 Nucleated RBC % (auto) 0.0 Hold Purple Top Hold Blue Top Sodium 136 Potassium 3.7 D Chloride 99 Carbon Dioxide 25 Anion Gap 16 BUN 12 Creatinine 0.77 Estim Creat Clear Calc 75.4 Estimated GFR > 60 POC Glucose Random Glucose 296 H Estimat Average Glucose Hemoglobin A1c % Lactic Acid Calcium 8.6 Magnesium 1.9 Total Bilirubin Direct Bilirubin AST ALT Alkaline Phosphatase Total Protein Albumin Lipase Urine Color YELLOW Urine Appearance HAZY Urine pH 6.5 Ur Specific [place] 1.010 Urine Protein 1+ H Urine Glucose (UA) 500 H Urine Ketones NEG Urine Blood TRACE Urine Nitrite NEG Ur Leukocyte Esterase NEG Urine RBC 1-4 Urine WBC 15-29 H Ur Squamous Epith Cells 1+ Urine Bacteria 3+ Urine Opiates Screen Ur Barbiturates Screen Ur Phencyclidine Scrn Ur Amphetamines Screen U Benzodiazepines Scrn Urine Cocaine Screen U Marijuana (THC) Screen Acetone, Qual 02/18/20 02/18/20 02/18/20 05:49 05:49 07:53 WBC RBC Hgb Hct MCV MCH MCHC RDW Plt Count MPV Immature Gran % (Auto) Neut % (Auto) Lymph % (Auto) [place] % (Auto) Eos % (Auto) Baso % (Auto) Lymph # (Auto) [place] # (Auto) Eos # (Auto) Baso # (Auto) Abs Immat Gran (auto) Absolute Neuts (auto) Absolute Nucleated RBC Nucleated RBC % (auto) Hold Purple Top Hold Blue Top Sodium 142 Potassium 3.7 Chloride 100 Carbon Dioxide 35 H Anion Gap 11 L BUN 12 Creatinine 0.76 Estim Creat Clear Calc 76.4 Estimated GFR > 60 POC Glucose 246 H Random Glucose 294 H Estimat Average Glucose 269 Hemoglobin A1c % 11.0 Lactic Acid Calcium 8.7 Magnesium 1.5 L Total Bilirubin Direct Bilirubin AST ALT Alkaline Phosphatase Total Protein Albumin Lipase Urine Color Urine Appearance Urine pH Ur Specific [place] Urine Protein Urine Glucose (UA) Urine Ketones Urine Blood Urine Nitrite Ur Leukocyte Esterase Urine RBC Urine WBC Ur Squamous Epith Cells Urine Bacteria Urine Opiates Screen Ur Barbiturates Screen Ur Phencyclidine Scrn Ur Amphetamines Screen U Benzodiazepines Scrn Urine Cocaine Screen U Marijuana (THC) Screen Acetone, Qual 02/18/20 02/18/20 02/18/20 11:23 16:33 18:39 WBC RBC Hgb Hct MCV MCH MCHC RDW Plt Count MPV Immature Gran % (Auto) Neut % (Auto) Lymph % (Auto) [place] % (Auto) Eos % (Auto) Baso % (Auto) Lymph # (Auto) [place] # (Auto) Eos # (Auto) Baso # (Auto) Abs Immat Gran (auto) Absolute Neuts (auto) Absolute Nucleated RBC Nucleated RBC % (auto) Hold Purple Top Hold Blue Top Sodium Potassium Chloride Carbon Dioxide Anion Gap BUN Creatinine Estim Creat Clear Calc Estimated GFR POC Glucose 246 H 323 H Random Glucose Estimat Average Glucose Hemoglobin A1c % Lactic Acid Calcium Magnesium Total Bilirubin Direct Bilirubin AST ALT Alkaline Phosphatase Total Protein Albumin Lipase Urine Color Urine Appearance Urine pH Ur Specific [place] Urine Protein Urine Glucose (UA) Urine Ketones Urine Blood Urine Nitrite Ur Leukocyte Esterase Urine RBC Urine WBC Ur Squamous Epith Cells Urine Bacteria Urine Opiates Screen POSITIVE H Ur Barbiturates Screen Not Detected Ur Phencyclidine Scrn Not Detected Ur Amphetamines Screen Not Detected U Benzodiazepines Scrn Not Detected Urine Cocaine Screen Not Detected U Marijuana (THC) Screen Not Detected Acetone, Qual 02/18/20 02/19/20 02/19/20 20:04 07:24 07:50 WBC RBC Hgb Hct MCV MCH MCHC RDW Plt Count MPV Immature Gran % (Auto) Neut % (Auto) Lymph % (Auto) [place] % (Auto) Eos % (Auto) Baso % (Auto) Lymph # (Auto) [place] # (Auto) Eos # (Auto) Baso # (Auto) Abs Immat Gran (auto) Absolute Neuts (auto) Absolute Nucleated RBC Nucleated RBC % (auto) Hold Purple Top Hold Blue Top Sodium 138 Potassium 3.8 Chloride 98 Carbon Dioxide 30 H Anion Gap 14 BUN 19 H D Creatinine 0.83 Estim Creat Clear Calc 70.0 Estimated GFR > 60 POC Glucose 221 H 333 H Random Glucose 349 H Estimat Average Glucose Hemoglobin A1c % Lactic Acid Calcium 8.5 Magnesium Total Bilirubin Direct Bilirubin AST ALT Alkaline Phosphatase Total Protein Albumin Lipase Urine Color Urine Appearance Urine pH Ur Specific [place] Urine Protein Urine Glucose (UA) Urine Ketones Urine Blood Urine Nitrite Ur Leukocyte Esterase Urine RBC Urine WBC Ur Squamous Epith Cells Urine Bacteria Urine Opiates Screen Ur Barbiturates Screen Ur Phencyclidine Scrn Ur Amphetamines Screen U Benzodiazepines Scrn Urine Cocaine Screen U Marijuana (THC) Screen Acetone, Qual 02/19/20 02/19/20 02/19/20 07:50 11:22 15:59 WBC RBC Hgb Hct MCV MCH MCHC RDW Plt Count MPV Immature Gran % (Auto) Neut % (Auto) Lymph % (Auto) [place] % (Auto) Eos % (Auto) Baso % (Auto) Lymph # (Auto) [place] # (Auto) Eos # (Auto) Baso # (Auto) Abs Immat Gran (auto) Absolute Neuts (auto) Absolute Nucleated RBC Nucleated RBC % (auto) Hold Purple Top Hold Blue Top Sodium Potassium Chloride Carbon Dioxide Anion Gap BUN Creatinine Estim Creat Clear Calc Estimated GFR POC Glucose 222 H 284 H Random Glucose Estimat Average Glucose Hemoglobin A1c % Lactic Acid Calcium Magnesium 1.6 Total Bilirubin Direct Bilirubin AST ALT Alkaline Phosphatase Total Protein Albumin Lipase Urine Color Urine Appearance Urine pH Ur Specific [place] Urine Protein Urine Glucose (UA) Urine Ketones Urine Blood Urine Nitrite Ur Leukocyte Esterase Urine RBC Urine WBC Ur Squamous Epith Cells Urine Bacteria Urine Opiates Screen Ur Barbiturates Screen Ur Phencyclidine Scrn Ur Amphetamines Screen U Benzodiazepines Scrn Urine Cocaine Screen U Marijuana (THC) Screen Acetone, Qual Discharge Plan Discharge Patient Disposition: Home, Self-Care Referrals: [facility] [Physician] - (Needs new PCP) Physician,None [Primary Care Provider] - Ludmila Almonte MD [Physician] - (uncontrolled DM2, A1c 11) Discharge Medications: New nitrofurantoin monohyd/m-cryst 100 mg Capsule 100 mg PO Q12H Qty: 9 RF: 0 Basaglar KwikPen U-100 Insulin 100 unit/mL (3 mL) insulin pen 70 unit subcut QAM Qty: 3 RF: 0 Continued (DME) tasneem Dominguezc See Rx Instructions .ROUTE .MEDSUPPLY Qty: 1 RF: 0 Humulin R Regular U-100 Insuln 100 unit/mL solution 10 unit subcut TID Qty: 10 RF: 0 metformin 1,000 mg tablet 1,000 mg PO BID Qty: 60 RF: 0 lisinopril 20 mg tablet 20 mg PO DAILY Qty: 30 RF: 0 quetiapine [Seroquel] 200 mg tablet 200 mg PO BEDTIME Qty: 30 RF: 0 trazodone 150 mg tablet 150 mg PO BEDTIME PRN (Reason: insomnia) Qty: 30 RF: 0 tramadol 50 mg tablet 50 mg PO Q8H PRN (Reason: pain) 3 Days Qty: 10 RF: 0 Discontinued oxycodone 5 mg capsule 5 mg PO Q6H PRN (Reason: pain) Qty: 10 RF: 0 Discharge Orders: Discharge Order (Routine); Ordered 02/19/20 Ordered By: Shaun Leach Diet: diabetic diet and low salt diet Activity on Discharge: Use cane or walker Patient Instructions: Diabetes and Nutrition (DC) Visit Report Forms: Patient Portal Discharge page Care Plan Goals: left BKA healing, restore balance/walking Health Concerns: nausea/vomiting resolved. diabetes needs better control. Plan of Treatment: nausea/vomiting: resolved diabetes mellitus type 2 with hyperglycemia: Mediterranean diet, exercise, resume metformin and insulin (Basaglar 70 units daily plus Humalog 10 units 3x a day), follow up with your new primary care doctor at [facility], [address] [place] [address], . You will receive a call with the appointment. left BKA: follow up with Dr Mata [general surgeon] as scheduled on 03/19/20 at 3:30pm urinary tract infection: take nitrofurantoin 100 mg twice daily for 5 days
== END 2020-02-19 17:20 | disposition home or self-care (01) | DRG 638 ==
LOC: HO.ED 20:17 → HO.IMC 02-18 07:29
PROVIDERS: Physician Assistant Medical; Admitting Provider Internal Medicine; Emergency Provider Emergency Medicine; Visit Provider Family Medicine
DX: E11.65 Type 2 diabetes mellitus with hyperglycemia (principal); N39.0 Urinary tract infection, site not specified; E78.00 Pure hypercholesterolemia, unspecified; E83.42 Hypomagnesemia; E87.6 Hypokalemia; I10 Essential (primary) hypertension; T38.3X6A Underdosing of insulin and oral hypoglycemic [antidiabetic] drugs, initial encounter; Z91.120 Patient's intentional underdosing of medication regimen due to financial hardship; Y92.9 Unspecified place or not applicable; Z89.512 Acquired absence of left leg below knee; Z88.0 Allergy status to penicillin; Z79.4 Long term (current) use of insulin; Z79.891 Long term (current) use of opiate analgesic; Z79.899 Other long term (current) drug therapy
CPT/HCPCS: 36415; 74177; 76700; 80048; 80076; 80307; 81001; 82009; 82947; 83036; 83605; 83690; 83735; 85025; 87040; 87086; 87088; 87186; 96361; 96365; 96366; 96367; 96372; 96375; 96376; 97162; 99285; 99291; J1170; J1650; J2270; J2405; J2765; J3475

== ENCOUNTER 2020-02-29 15:37 | Emergency (ER) | payer OTHER, SELFPAY ==
[2020-02-29 15:41] VITALS: BP 137/69; BP 190/90; PULSE 101; PULSE 97; RESP 16; TEMP 37.2; O2SAT 100; O2SAT 99; BMI 26.1
--- NOTE | 2020-02-29 16:33 | ED.NAVMDI ---
HPI - Nausea/Vomiting/Diarrhea General Chief complaint: Nausea/Vomiting/Diarrhea Stated complaint: N/V ALL DAY, RECENT + COVID Time Seen by Provider: 02/29/20 16:30 Source: patient Mode of arrival: ambulatory Limitations: no limitations History of Present Illness HPI Narrative: patient history of diabetes left BKA on 01/26 in [facility] was admitted here on 02/16 discharged on 02/18 for hyperglycemia and GERRI she comes back for nausea vomiting and epigastric pain for last 3 days unable to eat anything according to her she taking her insulin MD elicited complaint: nausea and vomiting Onset (ago): day(s) (4) Description of vomiting: food contents and watery Associated nausea: Yes Associated abdominal pain: Yes Location of pain: epigastric Quality: cramping Exacerbating factors: eating Relieving factors: none Related Data Previous Rx's Medication Instructions Recorded tasneem #1 ea 02/04/20 Humulin R Regular U-100 Insuln 10 unit SUBCUT TID #10 ml 02/07/20 lisinopril 20 mg PO DAILY #30 tab 02/07/20 metformin 1,000 mg PO BID #60 tab 02/07/20 quetiapine [Seroquel] 200 mg PO BEDTIME #30 tab 02/07/20 tramadol 50 mg PO Q8H PRN 3 Days #10 tab 02/07/20 trazodone 150 mg PO BEDTIME PRN #30 tab 02/07/20 insulin glargine [Basaglar KwikPen 70 unit SUBCUT QAM #3 ml 02/19/20 U-100 Insulin] nitrofurantoin monohyd/m-cryst 100 mg PO Q12H #9 cap 02/19/20 tasneem #1 ea 02/19/20 cefuroxime axetil 500 mg PO BID 7 Days #14 tab 02/29/20 oxycodone 5 mg PO Q6H PRN #20 tab 02/29/20 Allergies Allergy/AdvReac Type Severity Reaction Status Date / Time Penicillins [PENICILLINS] Allergy Mild RASH Verified 02/17/20 14:33 Review of Systems Review of Systems: Constitutional : No Weight loss, No Fever, No Chills, No Night Sweats, No Fatigue, No Malaise ENT/Mouth : No Hearing loss, No Ear Pain, No Nasal Congestion, No Sinus Pain, No Hoarseness, No sore throat, No Rhinorrhea, No Swallowing Difficulty Eyes: No Eye Pain, No Swelling, No Redness, No Foreign Body, No Discharge, No Vision Changes Cardiovascular : No Chest Pain, No SOB, No Dyspnea on Exertion, No Orthopnea, No Edema, No Palpitations Respiratory : No Cough, No Sputum, No Wheezing, No Smoke Exposure, No Dyspnea Gastrointestinal : Positive Nausea, Positive Vomiting, positive abdominal Pain, No Hematochezia, No Melena Genitourinary : no irregular bleeding, No Dysuria, No Urinary Frequency, No Hematuria, No Urinary Incontinence, No Urgency, No Flank Pain, No Urinary Flow Changes, No Hesitancy Musculoskeletal : No joint pain, No Myalgias, No Joint Swelling Skin : No Skin Lesions, No rash Neuro : No Weakness, No Numbness, No Paresthesias, No Loss of Consciousness, No Dizziness, No Headache Psych : No Anxiety/Panic, No Depression, No SI/HI/AH/VH, No Social Issues, Heme/Lymph: No Bruising, No Bleeding,No Lymphadenopathy Endocrine : No Polyuria, No Polydipsia, No Temperature Intolerance Gastrointestinal: Gastrointestinal: Reports nausea PMFSH Past Medical History Medical History Asthma Diabetes mellitus, type 2 Hypercholesteremia Hypertension Psychotic disorder Uncontrolled type 2 diabetes mellitus Surgical History History of amputation Family History Family History Father History of prostate cancer History of kidney cancer Social History Social History Alcohol intake: never Smoking Status: Never smoker Smoked in Last 30 Days: No Use of substances other than those prescribed or required for medical reasons: No Advance Directives: No Advance Directives Information Provided: No service: No Physical Exam Vital Signs: Vital Signs: Vital Signs Temp Pulse Resp BP Pulse Ox 02/29/20 20:00 99.7 F 99 16 158/70 H 96 02/29/20 17:38 99.1 F 100 20 171/88 H 94 02/29/20 15:41 99.0 F 97 16 137/69 100 Body Mass Index 26.1 VITAL SIGNS: Reviewed. GENERAL: Well developed, well nourished, in mild distress. HEAD: Normocephalic/atraumatic, EYES: PERRLA No pallor/icterus noted EARS: Ext canals without abnormality NOSE: Nares patent bilateral OROPHARYNX: Oral mucosa moist no oral lesions NECK: Supple, no adenopathy LUNGS: Normal breath sounds. No adventitious sounds or accessory muscle use CARDIOVASCULAR: Regular rate and rhythm without noted murmurs, no JVD or lower extremity edema. ABDOMEN: Soft, tender in epig area, non-distended with bowel sounds. No rigidity. No guarding. No palpable masses or hernias noted MUSCULOSKELETAL: No tenderness, deformities, left BKA with healthy surgical wound EXTREMITIES: No cyanosis or edema. left BKA with healing wound SKIN: no rashes, ulcerations, jaundice, pallor, or petechiae NEUROLOGIC: Alert and oriented x 3. Strength and sensation to light touch were grossly intact Course Reevaluation(s) Reevaluation #1: according to patient her mother and sister positive with COVID and they live in the same house initially patient refused COVID testing later on COVID testing came back positive. Patient chest x-ray is negative for any infiltrate patient is saturating 100% at room air will discharge her home also patient has UTI which is partially treated with Macrobid since last admission patient her urine grew Klebsiella which is less sensitive to Macrobid as compared to Ceftin discharge her on Ceftin also will give her oxycodone for phantom pain MDM - Nausea/Vomiting/Diarrhea Lab Data Result diagrams: 02/29/20 18:07 02/29/20 18:07 Labs: Lab Results 02/29/20 02/29/20 02/29/20 Range/Units 18:07 18:07 18:08 WBC 5.8 (4.8-10.8) X10*3/uL RBC 3.41 L (4.20-5.50) X10*6/uL Hgb 9.8 L (12.0-16.0) g/dl Hct 29.6 L (37-47) % MCV 86.8 (80-98) fL MCH 28.7 (27.0-33.0) pg MCHC 33.1 (31.0-35.0) g/dl RDW 13.2 (11.0-16.0) % Plt Count 209 (160-400) X10*3/uL MPV 10.9 (9.4-12.3) fL Immature Gran % (Auto) 0.2 (0.0-0.4) % Neut % (Auto) 72.3 (45-73) % Lymph % (Auto) 20.0 (20-40) % [place] % (Auto) 7.0 (2-11) % Eos % (Auto) 0.3 (0-4) % Baso % (Auto) 0.2 (0-2) % Lymph # (Auto) 1.2 (1.2-4.9) X10*3/uL [place] # (Auto) 0.4 (0.1-1.2) X10*3/uL Eos # (Auto) 0.0 (0.0-0.4) X10*3/uL Baso # (Auto) 0.0 (0.0-0.2) X10*3/uL Abs Immat Gran (auto) 0.01 (0.00-0.03) X10*3/uL Absolute Neuts (auto) 4.2 (2.0-8.3) X10*3/uL Absolute Nucleated RBC 0.000 (0.0-0.012) X10*3/uL Nucleated RBC % (auto) 0.0 (0.0-0.2) /100WBC Sodium 138 (135-145) mmol/L Potassium 3.8 (3.3-5.1) mmol/l Chloride 97 (96-108) mmol/L Carbon Dioxide 32 H (22-29) mmol/L Anion Gap 13 (12-20) BUN 15 (9-16) mg/dL Creatinine 0.84 (0.5-1.4) mg/dL Estim Creat Clear Calc 76.4 Estimated GFR > 60 Random Glucose 161 H D (60-115) mg/dL Calcium 8.1 L (8.4-10.2) mg/dL Total Bilirubin 0.6 (0.0-1.0) mg/dL Direct Bilirubin 0.2 (0.0-0.5) mg/dL AST 14 (5-31) U/L ALT 12 (0-31) U/L Alkaline Phosphatase 99 (39-117) U/L Total Protein 6.7 (6.5-8.0) g/dL Albumin 3.5 (3.5-5.0) g/dL Lipase 9 (8-78) U/L Urine Color Urine Appearance Urine pH (5.0-8.0) Ur Specific [place] (1.005-1.025) Urine Protein (NEG-TRACE) MG/DL Urine Glucose (UA) (NEG) MG/DL Urine Ketones (NEG) MG/DL Urine Blood (NEG) Urine Nitrite (NEG) Ur Leukocyte Esterase (NEG) Urine RBC (0) /HPF Urine WBC (0-4) /HPF Ur Squamous Epith Cells /LPF Urine Bacteria /LPF Acetone, Qual Negative (Negative) Coronavirus (PCR) (Negative) 02/29/20 02/29/20 Range/Units 18:23 20:05 WBC (4.8-10.8) X10*3/uL RBC (4.20-5.50) X10*6/uL Hgb (12.0-16.0) g/dl Hct (37-47) % MCV (80-98) fL MCH (27.0-33.0) pg MCHC (31.0-35.0) g/dl RDW (11.0-16.0) % Plt Count (160-400) X10*3/uL MPV (9.4-12.3) fL Immature Gran % (Auto) (0.0-0.4) % Neut % (Auto) (45-73) % Lymph % (Auto) (20-40) % [place] % (Auto) (2-11) % Eos % (Auto) (0-4) % Baso % (Auto) (0-2) % Lymph # (Auto) (1.2-4.9) X10*3/uL [place] # (Auto) (0.1-1.2) X10*3/uL Eos # (Auto) (0.0-0.4) X10*3/uL Baso # (Auto) (0.0-0.2) X10*3/uL Abs Immat Gran (auto) (0.00-0.03) X10*3/uL Absolute Neuts (auto) (2.0-8.3) X10*3/uL Absolute Nucleated RBC (0.0-0.012) X10*3/uL Nucleated RBC % (auto) (0.0-0.2) /100WBC Sodium (135-145) mmol/L Potassium (3.3-5.1) mmol/l Chloride (96-108) mmol/L Carbon Dioxide (22-29) mmol/L Anion Gap (12-20) BUN (9-16) mg/dL Creatinine (0.5-1.4) mg/dL Estim Creat Clear Calc Estimated GFR Random Glucose (60-115) mg/dL Calcium (8.4-10.2) mg/dL Total Bilirubin (0.0-1.0) mg/dL Direct Bilirubin (0.0-0.5) mg/dL AST (5-31) U/L ALT (0-31) U/L Alkaline Phosphatase (39-117) U/L Total Protein (6.5-8.0) g/dL Albumin (3.5-5.0) g/dL Lipase (8-78) U/L Urine Color YELLOW Urine Appearance HAZY Urine pH 5.5 (5.0-8.0) Ur Specific [place] 1.020 (1.005-1.025) Urine Protein 1+ H (NEG-TRACE) MG/DL Urine Glucose (UA) 100 H (NEG) MG/DL Urine Ketones NEG (NEG) MG/DL Urine Blood NEG (NEG) Urine Nitrite NEG (NEG) Ur Leukocyte Esterase 1+ H (NEG) Urine RBC 0 (0) /HPF Urine WBC 5-9 H (0-4) /HPF Ur Squamous Epith Cells 1+ /LPF Urine Bacteria 4+ /LPF Acetone, Qual (Negative) Coronavirus (PCR) POSITIVE A (Negative) Discharge Plan Discharge Clinical Impression: COVID-19, Gastroenteritis UTI (urinary tract infection) Qualifiers: Urinary tract infection type: acute cystitis Hematuria presence: without hematuria Qualified Code(s): N30.00 - Acute cystitis without hematuria Patient Disposition: Home, Self-Care Instructions: Urinary Tract Infection in Women (ED), Acute Nausea and Vomiting (ED), COVID-19 (Coronavirus Disease 2019) (ED) Additional Instructions: care and cautions as advised with social distancing. Medication for pain and urinary tract infection as prescribed and follow-up with primary care doctor, stop nitrofurantoin Prescriptions: New cefuroxime axetil 500 mg tablet 500 mg PO BID 7 Days Qty: 14 RF: 0 oxycodone 5 mg tablet 5 mg PO Q6H PRN (Reason: pain) Qty: 20 RF: 0 No Action (DME) tasneem Do See Rx Instructions .ROUTE .MEDSUPPLY Qty: 1 RF: 0 Humulin R Regular U-100 Insuln 100 unit/mL solution 10 unit subcut TID Qty: 10 RF: 0 metformin 1,000 mg tablet 1,000 mg PO BID Qty: 60 RF: 0 lisinopril 20 mg tablet 20 mg PO DAILY Qty: 30 RF: 0 quetiapine [Seroquel] 200 mg tablet 200 mg PO BEDTIME Qty: 30 RF: 0 trazodone 150 mg tablet 150 mg PO BEDTIME PRN (Reason: insomnia) Qty: 30 RF: 0 tramadol 50 mg tablet 50 mg PO Q8H PRN (Reason: pain) 3 Days Qty: 10 RF: 0 nitrofurantoin monohyd/m-cryst 100 mg Capsule 100 mg PO Q12H Qty: 9 RF: 0 Basaglar DarrellikPen U-100 Insulin 100 unit/mL (3 mL) insulin pen 70 unit subcut QAM Qty: 3 RF: 0 (DME) tasneem Do See Rx Instructions .ROUTE .MEDSUPPLY Qty: 1 RF: 0
[2020-02-29 17:38] VITALS: BP 171/88; PULSE 100; RESP 20; TEMP 37.3; O2SAT 94
[2020-02-29 18:12] LABS: MANUAL DIFF FLAG NO
[2020-02-29 18:13] LABS: Basophils Percent Auto 0.2 % (0-2); Eosinophils Percent Auto 0.3 % (0-4); Hematocrit 29.6 % (37-47); Hemoglobin 9.8 g/dl (12.0-16.0); Imm Gran Abs Auto 0.01 X10*3/uL (0.00-0.03); Imm Gran Pct Auto 0.2 % (0.0-0.4); Lymphocytes Absolute Auto 1.2 X10*3/uL (1.2-4.9); Mean Corpuscular HGB Conc 33.1 g/dl (31.0-35.0); Mean Corpuscular Hemoglobin 28.7 pg (27.0-33.0); Mean Corpuscular Volume 86.8 fL (80-98); Mean Platelet Volume 10.9 fL (9.4-12.3); Monocytes Absolute Auto 0.4 X10*3/uL (0.1-1.2); Neutrophils Absolute Auto 4.2 X10*3/uL (2.0-8.3); Neutrophils Percent Auto 72.3 % (45-73); Platelet Count 209 X10*3/uL (160-400); Red Blood Count 3.41 X10*6/uL (4.20-5.50); Red Cell Distribution Width 13.2 % (11.0-16.0); White Blood Count 5.8 X10*3/uL (4.8-10.8)
[2020-02-29] MEDS: 0.9 % Sodium Chloride 1,000 ML 999 ML IVCONT ×2 (18:13→20:42)
[2020-02-29] MEDS: Morphine Sulfate 4 MG/ML CARTRIDGE IVPUSH (18:13)
[2020-02-29] MEDS: ondansetron HCL 4 MG/2 ML VIAL IVPUSH (18:14)
--- NOTE | 2020-02-29 18:14 | PC.NURSE ---
unable to obtain peripheral IV access. MD placed IV in left neck. pt refusing covid swab at this time.
[2020-02-29 18:38] LABS: Acetone, serum QL Negative (Negative)
[2020-02-29 18:48] LABS: Alanine Aminotransferase 12 U/L (0-31); Albumin Level 3.5 g/dL (3.5-5.0); Alkaline Phosphatase 99 U/L (39-117); Anion Gap 13 (12-20); Aspartate Amino Transferase 14 U/L (5-31); Bilirubin Direct 0.2 mg/dL (0.0-0.5); Bilirubin Total 0.6 mg/dL (0.0-1.0); Blood Urea Nitrogen 15 mg/dL (9-16); Calcium 8.1 mg/dL (8.4-10.2); Carbon Dioxide 32 mmol/L (22-29); Chloride 97 mmol/L (96-108); Creatinine Clr Calc Pharmacy 76.4; Estimated Glomerular Filt Rate > 60; Glucose Random 161 mg/dL (60-115); Lipase 9 U/L (8-78); Potassium 3.8 mmol/l (3.3-5.1); Sodium 138 mmol/L (135-145); Total Protein 6.7 g/dL (6.5-8.0)
[2020-02-29] MEDS: Famotidine/PF 20 MG/2 ML VIAL IVPUSH (18:54)
--- NOTE | 2020-02-29 19:05 | PC.NURSE ---
REPORT TAKEN FROM KENZIE LACEY, FIRST CONTACT WITH PT. LEENA +. SITTING UP IN BED SKIN PWD RESPIRATIONS EVEN UNLABORED, NO OBVIOUS DISTRESS. REPORTS CONTINUED UPPER MID ABD PAIN. AWAITING URINE SAMPLE AND MD REEVAL.AWARE OF PLAN OF CARE.
[2020-02-29 19:12] LABS: SARS COV2 PCR INHOUSE POSITIVE (Negative)
[2020-02-29 20:00] VITALS: BP 158/70; PULSE 99; RESP 16; TEMP 37.6; O2SAT 96
[2020-02-29 20:13] LABS: Glucose Urine UA 100 MG/DL (NEG); Leukocyte Esterase Urine 1+ (NEG); Nitrite Urine NEG (NEG); PH 5.5 (5.0-8.0); Urine Blood NEG (NEG); Urine Ketones NEG (NEG); Urine Protein 1+ MG/DL (NEG-TRACE)
[2020-02-29 20:15] LABS: Appearance Urine HAZY; Color Urine YELLOW
[2020-02-29 20:21] LABS: Bacteria Urine 4+ /LPF; RBC Urine 0 /HPF (0); Squamous Epithelial Cell Urine 1+ /LPF
--- NOTE | 2020-02-29 20:21 | XR_ITS ---
EXAMINATION: CHEST 1 VIEW CLINICAL INFORMATION: Concern for Covid. COMPARISON: None. TECHNIQUE: An AP view of the chest is provided. FINDINGS: The cardiac silhouette is not enlarged. The mediastinal and hilar contours are unremarkable. There are neither pleural effusions nor pneumothoraces. There are no consolidations. The osseous structures are unremarkable. XR/XR chest 1V IMPRESSION: No evidence for acute disease.
[2020-02-29] MEDS: cefTRIAXone sodium 1 GM in 0.9 % Sodium Chloride 50 ML IV (20:41)
[2020-02-29] MEDS: Ketorolac Tromethamine 30 MG/ML VIAL IVPUSH (20:41)
--- NOTE | 2020-02-29 20:47 | PC.NURSE ---
EJ INFILTRATED UPON MED ADMINISTRATION, NOTIFIED.
--- NOTE | 2020-02-29 20:59 | PC.NURSE ---
PT TO BE MEDICATED WITH PO ABX AND DC HOME. AWARE OF PLAN OF CARE.
--- NOTE | 2020-02-29 21:26 | PC.NURSE ---
pt right amputation wound wrapped, po antibiotic given. pt can not find ride home. will attempt chair van transportation
--- NOTE | 2020-02-29 22:42 | PC.NURSE ---
PT HAS NO INSURANCE UNABLE TO BOOK CHAIR VAN- FAMILY WILL NOT FORESTRY SUPPORT SPECIALIST PATIENT. PAT RN ATTEMPTING TO ARRANGE TRANSPORTATION.
[2020-02-29 22:54] VITALS: BP 153/79; PULSE 95; RESP 16; O2SAT 96
== END 2020-02-29 23:37 | disposition home or self-care (01) ==
PROVIDERS: Emergency Provider Internal Medicine
DX: U07.1 COVID-19 (principal); K52.9 Noninfective gastroenteritis and colitis, unspecified; N30.00 Acute cystitis without hematuria; Z79.899 Other long term (current) drug therapy
CPT/HCPCS: 36415; 71045; 80048; 80076; 81001; 82009; 83690; 85025; 87086; 87088; 87186; 96361; 96365; 96375; 99284; 99285; J0696; J1885; J2270; J2405; U0003